=== PATIENT | male | born 1985 | race Caucasian/White ===

== ENCOUNTER 2017-02-16 12:32 | Emergency (ER) | payer OTHER ==
[2017-02-16] MEDS ORDERED: HYDROmorphone 1 MG/ML SYRINGE IM STA (13:49)
[2017-02-16] MEDS ORDERED: DEXAMETHASONE 10 MG/ML VIAL PO STA (13:49)
[2017-02-16] MEDS ORDERED: ONDANSETRON ODT 4 MG TABLET TL STA (13:49)
[2017-02-16] MEDS ORDERED: ONDANSETRON ODT 4 MG TABLET ONE (14:17)
[2017-02-16] MEDS ORDERED: CHERRY SYRUP 10 ML UDC PO ONE (14:17)
[2017-02-16] MEDS ORDERED: HYDROmorphone 1 MG/ML SYRINGE ONE (14:17)
[2017-02-16] MEDS ORDERED: DEXAMETHASONE 10 MG/ML VIAL ONE (14:18)
== END 2017-02-16 15:40 | disposition home or self-care (01) ==
DX: M54.31 Sciatica, right side (principal); M51.37 Other intervertebral disc degeneration, lumbosacral region; W01.0XXA Fall on same level from slipping, tripping and stumbling without subsequent striking against object, initial encounter; Z91.81 History of falling; Y99.0 Civilian activity done for income or pay; Z98.1 Arthrodesis status; F17.200 Nicotine dependence, unspecified, uncomplicated
CPT/HCPCS: 96372; 99283; A9270; J1170; Q0162

== ENCOUNTER 2017-06-02 12:58 | Outpatient (CLI) | payer OTHER | END 2017-06-02 12:59 | disposition home or self-care (01) | LOC: SC 12:58 | PROVIDERS: ATTEND Specialist | DX: G47.30 Sleep apnea, unspecified (principal); R06.83 Snoring; G47.8 Other sleep disorders; G47.10 Hypersomnia, unspecified | CPT/HCPCS: 99205; 99212 ==

== ENCOUNTER 2017-11-11 22:05 | Outpatient (CLI) | payer OTHER | END 2017-11-11 22:06 | disposition home or self-care (01) | LOC: SC 22:05 | PROVIDERS: ATTEND Internal Medicine Pulmonary Disease | DX: G47.30 Sleep apnea, unspecified (principal) | CPT/HCPCS: 95810 ==

== ENCOUNTER 2018-01-12 13:11 | Outpatient (CLI) | payer OTHER | END 2018-01-12 13:12 | disposition home or self-care (01) | LOC: SC 13:11 | PROVIDERS: ATTEND Nurse Practitioner Family | DX: G47.8 Other sleep disorders (principal) | CPT/HCPCS: 99212; 99215 ==

== ENCOUNTER 2023-01-29 15:37 | Outpatient (CLI) | payer OTHER ==
--- NOTE | 2023-01-29 16:46 | XRAY Report ---
PROCEDURE: Elbow 3 View RT INDICATIONS: RIGHT ELBOW PAIN TECHNIQUE: 3 views of the elbow were acquired. COMPARISON: None FINDINGS: Bones: No fractures or dislocations. No suspicious bony lesions. Particular osteophyte formation i s present. Soft tissues: No elbow joint effusion. Small cluster of radiodensities at the anterior aspect of the distal humerus are seen on the lateral view. IMPRESSION: 1. Osteoarthritis. 2. Indeterminate radiodensities at the anterior aspect of the distal humerus. This could be further a ssessed with CT, if clinically indicated. 3. No acute fracture. No osseous lesion. If symptoms and/or clinical suspicion for pathology continue , further assessment with repeat plain films, or advanced imaging (e.g., CT, MRI, or bone scan) is re commended for further assessment. Reviewed by: Jossie Burleson MD on 01/29/2023 4:44 PM PDT Approved by: Jossie Burleson MD on 01/29/2023 4:44 PM PDT Station ID: [id number]
== END 2023-01-29 15:39 | disposition home or self-care (01) ==
LOC: DI.WOS 15:37
PROVIDERS: ATTEND Orthopaedic Surgery
DX: M19.021 Primary osteoarthritis, right elbow (principal)

== ENCOUNTER 2023-11-23 15:44 | Outpatient (CLI) | payer OTHER ==
[~2023-11-23 15:44] MED LIST: GADOTERATE MEGLUMINE 10 MMOL/20 ML VIAL ONE; GADOTERATE MEGLUMINE 5 MMOL/10 ML VIAL ONE
[2023-11-23] MEDS ORDERED: GADOTERATE MEGLUMINE 5 MMOL/10 ML VIAL IVP ONE (17:57)
[2023-11-23] MEDS ORDERED: GADOTERATE MEGLUMINE 10 MMOL/20 ML VIAL IVP ONE (17:57)
--- NOTE | 2023-11-23 18:33 | MRI Report ---
PROCEDURE: LUMBAR SPINE W/WO INDICATIONS: LUMBAR RADICULOPATHY CONTRAST: clariscan 24ml TECHNIQUE: Noncontrast sagittal T1 spin echo and T2 fast spin echo, sagittal STIR, axial T1 and T2 fast spin ech o through the lumbar spine. In cases with scoliosis, additional coronal T2 fast spin echo may be per formed. After the administration of contrast, sagittal and axial T1 spin echo with fat saturation th rough the lumbar spine. COMPARISON: No prior lumbar spine studies are available for review at the time of this dictation. FINDINGS: Image quality: There is artifact associated with the metallic hardware. Motion artifact is noted. Alignment and curvature: Mild retrolisthesis can be seen at the L3-L4 level. Grade 1/2 anterolisthesi s is seen at L5-S1. Marrow: Marrow is of normal overall signal. No acute vertebral body compression fractures. No susp icious marrow enhancement. Spinal cord: Conus medullaris terminates at the L1 level. Visualized spinal cord demonstrates bryanna l signal, without suspicious enhancement. Paraspinous soft tissues: No paravertebral masses or abnormal enhancement. L4-S1 postoperative hardware can be seen, with bilateral pedicle screws and vertical fixation rods. T here has been removal of portions of the posterior elements. T11-T12: Mild to moderate loss of disc height and disc signal can be seen. No significant neural fora migue or central canal narrowing can be seen. T12-L1: Normal in appearance. L1-L2: Normal in appearance. L2-L3: The disc height and disc signal are well preserved. Mild disc bulge is seen. Mild to mode rate facet hypertrophy is seen. Moderate bilateral neural foraminal narrowing is seen. No central ca nal narrowing is seen. L3-L4: The disc height is well-preserved. There is loss of disc signal seen. Moderate disc bulge i s seen at this level. A superimposed central disc protrusion is seen. Moderate facet hypertrophy is seen. Fluid is seen within the facet joints themselves. Moderate to severe bilateral neural foraminal narrowing can be seen, with associated compression upon the exiting nerve roots. At least moderate c entral canal narrowing is seen, as on series 13 image 25. L4-L5: At least moderate loss of disc height and disc signal can be seen. Reactive marrow endplate changes are seen, which are hyperintense on T1-weighted and T2-weighted imaging, without significant increased STIR signal. 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 At least moderate facet hypertrophy is seen. Moderate bilateral neural foraminal narrow ing is seen. No central canal narrowing is seen. L5-S1: Moderate to severe loss of disc height and disc signal can be seen. Moderate disc bulge is se en at this level. Moderate facet hypertrophy is seen. Moderate to severe bilateral neural foramina l narrowing can be seen, with associated compression upon the exiting nerve roots. No central canal n arrowing is seen. IMPRESSION: Lower lumbar spine postoperative and degenerative changes are seen. Reviewed by: Pedrito Hernandez MD on 11/23/2023 5:32 PM [place] Approved by: Pedrito Hernandez MD on 11/23/2023 5:32 PM [facility] Station ID: [id number]
== END 2023-11-23 15:45 | disposition home or self-care (01) ==
LOC: DI 15:44
PROVIDERS: ATTEND Preventive Medicine Aerospace Medicine
DX: M51.16 Intervertebral disc disorders with radiculopathy, lumbar region (principal); M48.061 Spinal stenosis, lumbar region without neurogenic claudication; M47.26 Other spondylosis with radiculopathy, lumbar region; M47.27 Other spondylosis with radiculopathy, lumbosacral region; M48.07 Spinal stenosis, lumbosacral region; M51.17 Intervertebral disc disorders with radiculopathy, lumbosacral region
CPT/HCPCS: 72158; A9575

== ENCOUNTER 2023-12-22 15:03 | Emergency (ER) | payer OTHER ==
[2023-12-22 15:56] LABS: RAPID STREP SCREEN Negative (Negative)
[2023-12-22 16:42] LABS: B. PARAPERTUSSIS- RESP PCR PAN NOT DETECTED; B. PERTUSSIS- RESP PCR PANEL NOT DETECTED; C. PNEUMONIAE- RESP PCR PANEL NOT DETECTED; CORONAVIRUS 229E-RESP PCR NOT DETECTED; CORONAVIRUS HKU1-RESP PCR NOT DETECTED; CORONAVIRUS NL63-RESP PCR NOT DETECTED; CORONAVIRUS OC43-RESP PCR NOT DETECTED; HUMAN METAPNEUMOVIRUS NOT DETECTED; INFLUENZA A- RESP PCR PANEL NOT DETECTED; INFLUENZA B - RESP PCR PANEL NOT DETECTED; M. PNEUMONIAE- RESP PCR PANEL NOT DETECTED; PARAINFLUENZA VIRUS 1 DETECTED; PARAINFLUENZA VIRUS 2 NOT DETECTED; PARAINFLUENZA VIRUS 3 NOT DETECTED; PARAINFLUENZA VIRUS 4 NOT DETECTED; RHINOVIRUS/ENTEROVIRUS NOT DETECTED; RSV- RESP PCR PANEL NOT DETECTED; SARS-CoV-2 -RESP PCR PANEL NOT DETECTED
--- NOTE | 2023-12-22 17:04 | XRAY Report ---
PROCEDURE: Chest 1V INDICATIONS: dyspnea TECHNIQUE: One view of the chest was acquired. COMPARISON: None. FINDINGS: Surgical changes and devices: None. Lungs and pleura: No pleural effusions or pneumothorax. Lungs are clear. Mediastinum: Mediastinal contours appear normal. Heart size is normal. Bones and chest wall: No suspicious bony lesions. Overlying soft tissues appear unremarkable. IMPRESSION: No acute cardiopulmonary process. Reviewed by: Iesha Moore MD on 12/22/2023 5:02 PM [facility] Approved by: Iesha Moore MD on 12/22/2023 5:02 PM [facility] Station ID: [id number]
--- NOTE | 2023-12-22 17:21 | ED Physician Documentation ---
PD HPI URI - Stated complaint Stated Complaint: SOA,SIERRA - Chief complaint Chief Complaint: Resp - History obtained from History obtained from: Patient - History of Present Illness Timing - onset: How many days ago (3) Timing duration: Days (3) Timing details: Abrupt onset, Still present Associated symptoms: Fever, Chills, Sore throat, Dry cough, Dyspnea. No: Hemoptysis Contributing factors: No: Sick contact, COPD / asthma Similar symptoms before: Has not had sx before Review of Systems Constitutional: reports: Fever, Chills, Myalgias Nose: reports: Congestion Throat: reports: Sore throat Cardiac: reports: Chest pain / pressure (with coughing). denies: Palpitations Respiratory: reports: Dyspnea, Cough, Wheezing GI: denies: Vomiting, Diarrhea Skin: denies: Rash Neurologic: reports: Generalized weakness, Headache. denies: Near syncope, Altered mental status PD PAST MEDICAL HISTORY - Past Medical History Cardiovascular: None Respiratory: None Musculoskeletal: Chronic back pain - Past Surgical History Past Surgical History: Yes Ortho: Spine surgery - Present Medications Home Medications: Ambulatory Orders Medication Instructions Recorded Confirmed Cyclobenzaprine [Flexeril] 10 mg PO TID PRN #20 tablet 02/16/17 Gabapentin 300 mg PO TID 02/16/17 02/16/17 Meloxicam 15 mg PO DAILY 02/16/17 02/16/17 Albuterol Sulf [Ventolin Hfa 2 - 3 puffs INH QID #1 each 12/22/23 Inhaler] Benzonatate [Tessalon] 100 mg PO TID PRN #20 cap 12/22/23 DULoxetine [Cymbalta] 60 mg PO DAILY 12/22/23 Pregabalin 75 mg PO BID 12/22/23 dexAMETHasone [Decadron] 4 mg PO DAILY #5 tablet 12/22/23 guaiFENesin [Mucinex] 600 mg PO TID #20 tablet 12/22/23 methocarbamoL [Methocarbamol] 750 mg PO HS 12/22/23 traMADol [Ultram] 50 mg PO DAILY 12/22/23 - Allergies Allergies/Adverse Reactions: Allergies Allergy/AdvReac Type Severity Reaction Status Date / Time codeine AdvReac Unknown Verified 12/22/23 15:34 - Social History Does the pt smoke?: Yes Smoking Status: Light tobacco smoker Does the pt drink ETOH?: No Does the pt have substance abuse?: No - Immunizations Immunizations are current?: Yes PD ED PE NORMAL - Vitals Vital signs reviewed: Yes - General General: Alert and oriented X 3, No acute distress (but does appear weak/ill with frequent coughing and appears uncomfortbale when does cough. ), Well developed/nourished - HEENT HEENT: Ears normal, Pharynx benign - Neck Neck: Supple, no meningeal sign, No adenopathy - Cardiac Cardiac: RRR, No murmur - Respiratory Respiratory: No: Clear bilaterally (no coarse sounds. does have exp wheezing scattered. ) - Derm Derm: Normal color, Warm and dry, No rash Results - Vitals Vitals: Vital Signs - 24 hr 12/22/23 12/22/23 12/22/23 15:23 17:20 18:05 Temperature 37.6 C Heart Rate 96 91 90 Respiratory 18 19 18 Rate Blood Pressure 146/86 H 152/96 H O2 Saturation 98 95 12/22/23 18:24 Temperature Heart Rate 97 Respiratory 18 Rate Blood Pressure 143/93 H O2 Saturation 95 Oxygen O2 Source Room air - Labs Labs: Laboratory Tests 12/22/23 12/22/23 15:30 15:30 Nasal Adenovirus (PCR) NOT DETECTED Nasal B. parapertussis DNA (PCR) NOT DETECTED Nasal Coronavir 229E PCR NOT DETECTED Nasal Coronavir HKU1 PCR NOT DETECTED Nasal Coronavir NL63 PCR NOT DETECTED Nasal Coronavir OC43 PCR NOT DETECTED Nasal Enterovir/Rhinovir PCR NOT DETECTED Nasal Influenza B PCR NOT DETECTED Nasal Influenza A PCR NOT DETECTED Nasal Parainfluen 1 PCR DETECTED A Nasal Parainfluen 2 PCR NOT DETECTED Nasal Parainfluen 3 PCR NOT DETECTED Nasal Parainfluen 4 PCR NOT DETECTED Nasal RSV (PCR) NOT DETECTED Nasal B.pertussis DNA PCR NOT DETECTED Nasal C.pneumoniae (PCR) NOT DETECTED [place] Human Metapneumo PCR NOT DETECTED Nasal M.pneumoniae (PCR) NOT DETECTED Nasal SARS-CoV-2 (PCR) NOT DETECTED Group A Strep Rapid Negative - Rads (name of study) chest xray Relevant Findings:: Prelim report reviewed, EMP independent interpretation of test (no infiltrates) PD Medical Decision Making - ED course Complexity details: reviewed results (chest xray is negative for infiltrates. Viral panel psoitive for parainfluenza. ), considered differential (has positive parainfluenza test. Has been sick for 3 days. No pneumonia. Given the shorter duration of illness, I would presume just viral and not concurrent bacterial. ), d/w patient Departure - Departure Disposition: 01 Home, Self Care Clinical Impression: Parainfluenza infection, Viral URI with cough Condition: Stable Record reviewed to determine appropriate education?: Yes Instructions: ED URI Viral W Wheezing Follow-Up: KASHIF ALLISON DO [Primary Care Provider] - Prescriptions: dexAMETHasone [Decadron] 4 mg PO DAILY #5 tablet guaiFENesin [Mucinex] 600 mg PO TID #20 tablet Benzonatate [Tessalon] 100 mg PO TID PRN #20 cap PRN Reason: Cough Albuterol Sulf [Ventolin Hfa Inhaler] 2 - 3 puffs INH QID #1 each Comments: Your viral panel test was positive for a virus called parainfluenza. This is a flulike illness that will give a lot of general symptoms as well as the coughing and trouble breathing. Your chest x-ray does not show any signs of pneumonia or fluid in the lungs. We can try to help your symptoms with a combination of albuterol inhaler 2 to 3 puffs 4 times daily regularly for the next several days to week and extra times if needed for wheezing and trouble breathing. Additionally anti-inflammatory to help with bronchial inflammation to decrease some of the wheezing and improve breathing as well. Trying to get some of the phlegm up can be useful so I wrote for guaifenesin expectorant. In addition if needed you can use benzonatate to try to help with some of the bronchial irritation and therefore less coughing. I sent these prescriptions to the [facility] pharmacy. We did give you some starter doses here in we showed you how to use the inhaler. Being a viral illness, antibiotics are not helpful and there is no particular antiviral for this particular virus. Commonly the will be symptoms for about a week and then there can be some residual cough and shortness of breath for several weeks after. He can continue with the inhaler use even after feeling improved if it helps your breathing. Forms: PCP List Discharge Date/Time: 12/22/23 18:24
[2023-12-22 17:27] VITALS: O2SAT 95
[2023-12-22] MEDS: ALBUTEROL NEB 2.5 MG/3 ML INH STA (18:02)
[2023-12-22] MEDS: dexAMETHasone 4 MG TABLET PO STA (18:06)
[2023-12-22] MEDS: BENZONATATE 100 MG CAPSULE PO STA (18:06)
[2023-12-22 18:30] VITALS: BP 143/93
[2023-12-23] MEDS ORDERED: guaiFENesin 600 MG TABLET PO SCH (09:00)
== END 2023-12-22 18:24 | disposition home or self-care (01) ==
LOC: ED 15:03
DX: J11.1 Influenza due to unidentified influenza virus with other respiratory manifestations (principal); R05.9 Cough, unspecified; Z11.52 Encounter for screening for COVID-19; Z72.0 Tobacco use
CPT/HCPCS: 71045; 87070; 87430; 87633; 94640; 99284; A9270; J8540

== ENCOUNTER 2024-01-28 15:27 | Outpatient (CLI) | payer OTHER ==
--- NOTE | 2024-01-28 16:58 | MRI Report ---
PROCEDURE: Cervical Spine WO INDICATIONS: CERVICAL RADICULOPATHY TECHNIQUE: Noncontrast sagittal T1 spin echo and T2 fast spin echo, sagittal STIR, foraminal oblique sagittal T2 fast spin echo, and axial gradient echo or T2 fast spin echo through the cervical spine. COMPARISON: None. FINDINGS: Image quality: Excellent. Alignment and Curvature: Straightening of the normal cervical lordosis. Bone Marrow: Modic type II degenerative endplate changes at C5-C6. Marrow demonstrates normal overal l signal. Spinal Cord: Visualized spinal cord has normal size and signal. No cerebellar tonsillar herniation. Paraspinous Soft Tissues: No paravertebral masses. Prevertebral soft tissues are normal in thicknes s. C2-C3: Normal in appearance. C3-C4: Normal in appearance. C4-C5: Normal in appearance. C5-C6: Disc desiccation and posterior disc osteophyte complex abutting the ventral cord. Mild centra l canal stenosis. Facet and uncovertebral arthropathy. Mild bilateral neuroforaminal stenosis. C6-C7: Disc desiccation and height loss with mild posterior disc osteophyte complex. No significant central canal or neuroforaminal stenosis. C7-T1: Normal in appearance. IMPRESSION: Mild degenerative changes of the cervical spine as described above. This is most pronounced at C5-C6. Reviewed by: Robert Loomis MD on 01/28/2024 4:56 PM PDT Approved by: Robert Loomis MD on 01/28/2024 4:56 PM PDT Station ID: [id number]
--- NOTE | 2024-01-28 17:03 | MRI Report ---
PROCEDURE: Thoracic Spine WO INDICATIONS: CERVICAL RADICULOPATHY TECHNIQUE: Noncontrast sagittal T1 spine echo and T2 fast spin echo, sagittal STIR, axial T1 and T2 fast spin ec ho through the thoracic spine. COMPARISON: None. FINDINGS: Image quality: Excellent. Alignment and Curvature: There is normal bony alignment. Bone Marrow: Mild degenerative endplate changes. Marrow is of normal overall signal. No acute verte bral body compression fractures. Spinal Cord: Visualized spinal cord is normal in size and signal. Paraspinous Soft Tissues: No paravertebral masses. Miscellaneous: Mild disc desiccation and mild disc bulge at T11-T12. On axial images, central canal and foramina appear widely patent at all scanned levels. IMPRESSION: Mild degenerative changes without central canal or neuroforaminal stenosis. Reviewed by: Robert Loomis MD on 01/28/2024 5:02 PM PDT Approved by: Robert Loomis MD on 01/28/2024 5:02 PM PDT Station ID: [id number]
== END 2024-01-28 15:28 | disposition home or self-care (01) ==
LOC: DI 15:27
PROVIDERS: ATTEND Preventive Medicine Aerospace Medicine
DX: M47.22 Other spondylosis with radiculopathy, cervical region (principal); M47.814 Spondylosis without myelopathy or radiculopathy, thoracic region

== ENCOUNTER 2024-07-01 16:38 | Outpatient (CLI) | payer OTHER | END 2024-07-01 23:59 | disposition critical access hospital (66) | LOC: EMS 16:38 | DX: R40.20 Unspecified coma (principal); J96.90 Respiratory failure, unspecified, unspecified whether with hypoxia or hypercapnia | CPT/HCPCS: A0425; A0427 ==

== ENCOUNTER 2024-07-01 16:47 | Inpatient (IN) | payer OTHER ==
--- NOTE | 2024-07-01 16:55 | ED Physician Documentation ---
PD HPI ALTERED MENTAL STATUS - Stated complaint Stated Complaint: UNRESPONSIVE - History obtained from History obtained from: EMS - Additional information Additional information: 38-year-old gentleman brought in by ambulance intubated. 's deputy tells me that he sent his a basically a suicide video that she did not get until today. He went out drinking last night and then was alone all night and was found today incontinent of urine in bed with no signs of trauma with empty bottles of Lyrica, methocarbamol, and clonazepam at the bedside. These were all filled within the month. He did receive 20 of etomidate and 100 of rocuronium temitope-intubation. He did receive Narcan prior to intubation which was ineffective. PD PAST MEDICAL HISTORY - Past Medical History Cardiovascular: None Respiratory: None Neuro: None Endocrine/Autoimmune: None GI: None : None HEENT: None Psych: Depression Musculoskeletal: Chronic back pain Derm: None - Past Surgical History Past Surgical History: Yes Ortho: Spine surgery - Present Medications Home Medications: Ambulatory Orders Medication Instructions Recorded Confirmed Cyclobenzaprine [Flexeril] 10 mg PO TID PRN #20 tablet 02/16/17 Gabapentin 300 mg PO TID 02/16/17 02/16/17 Meloxicam 15 mg PO DAILY 02/16/17 02/16/17 Albuterol Sulf [Ventolin Hfa 2 - 3 puffs INH QID #1 each 12/22/23 Inhaler] Benzonatate [Tessalon] 100 mg PO TID PRN #20 cap 12/22/23 DULoxetine [Cymbalta] 60 mg PO DAILY 12/22/23 Pregabalin 75 mg PO BID 12/22/23 dexAMETHasone [Decadron] 4 mg PO DAILY #5 tablet 12/22/23 guaiFENesin [Mucinex] 600 mg PO TID #20 tablet 12/22/23 methocarbamoL [Methocarbamol] 750 mg PO HS 12/22/23 traMADol [Ultram] 50 mg PO DAILY 12/22/23 - Allergies Allergies/Adverse Reactions: Allergies Allergy/AdvReac Type Severity Reaction Status Date / Time codeine AdvReac Unknown Verified 07/01/24 17:25 - Social History Does the pt smoke?: Yes Smoking Status: Light tobacco smoker Does the pt drink ETOH?: No Does the pt have substance abuse?: No - Immunizations Immunizations are current?: Yes - POLST Patient has POLST: No PD ED PE NORMAL - Vitals Vital signs reviewed: Yes - General General: Other (He is intubated with no signs of trauma) - HEENT HEENT: Other (Small but reactive pupils, symmetric) - Cardiac Cardiac: RRR, No murmur, Other (Normal breath sounds with bagging) - Abdomen Abdomen: Normal bowel sounds, Soft, Non tender - Derm Derm: Normal color, Warm and dry - Extremities Extremities: No edema, No calf tenderness / cord - Neuro Eye Opening: None Motor: None Verbal: None GCS Score: 3 Results - Vitals Vitals: Vital Signs - 24 hr 07/01/24 07/01/24 16:47 17:35 Heart Rate 104 H 98 Respiratory 16 Rate Blood Pressure 148/92 H O2 Saturation 99 Oxygen O2 Source Ambu bag - EKG (time done) 1659 EKG releavant findings:: EKG personally interpreted by author of this note. Relevant findings are: Rate: Rate (enter#) (98) Rhythm: NSR Beatty: Normal Intervals: Normal CT. No: Prolonged QT, Wide QRS QRS: Normal Ischemia: Normal ST segments - Labs Labs: Laboratory Tests 07/01/24 07/01/24 07/01/24 17:00 17:00 17:00 WBC 9.7 RBC 4.72 Hgb 14.5 Hct 43.5 MCV 92.2 MCH 30.7 MCHC 33.3 RDW 14.1 Plt Count 120 L MPV 8.8 Neut # (Auto) 7.6 H Lymph # (Auto) 1.3 L [place] # (Auto) 0.6 Eos # (Auto) 0.1 Baso # (Auto) 0.0 Absolute Nucleated RBC 0.00 Nucleated RBC % 0.0 PT 13.9 H INR 1.3 H Bld Gas Analysis Time Sample Site ABG pH ABG pCO2 ABG pO2 ABG HCO3 ABG Total CO2 ABG O2 Saturation ABG Base Excess Mariano Test Respiration Rate O2 Delivery Device Vent Mode FiO2 Tidal Volume PEEP Sodium 140 Potassium 4.0 Chloride 104 Carbon Dioxide 27 Anion Gap 9.0 BUN 17 Creatinine 0.9 Estimated GFR (MDRD) 94 Glucose 98 Calcium 9.6 Magnesium 1.9 Total Bilirubin 0.5 AST 51 H ALT 43 Alkaline Phosphatase 98 Total Creatine Kinase 2869 H* Total Protein 7.2 Albumin 4.3 Globulin 2.9 Albumin/Globulin Ratio 1.5 Lipase 29 TSH 0.48 Urine Color Urine Clarity Urine pH Ur Specific [place] Urine Protein Urine Glucose (UA) Urine Ketones Urine Occult Blood Urine Nitrite Urine Bilirubin Urine Urobilinogen Ur Leukocyte Esterase Ur Microscopic Review Urine Culture Comments Nasal Adenovirus (PCR) Nasal B. parapertussis DNA (PCR) Nasal Coronavir 229E PCR Nasal Coronavir HKU1 PCR Nasal Coronavir NL63 PCR Nasal Coronavir OC43 PCR Nasal Enterovir/Rhinovir PCR Nasal Influenza B PCR Nasal Influenza A PCR Nasal Parainfluen 1 PCR Nasal Parainfluen 2 PCR Nasal Parainfluen 3 PCR Nasal Parainfluen 4 PCR Nasal RSV (PCR) Nasal B.pertussis DNA PCR Nasal C.pneumoniae (PCR) [place] Human Metapneumo PCR Nasal M.pneumoniae (PCR) Nasal SARS-CoV-2 (PCR) Salicylates < 1.5 Urine Opiates Screen Ur Buprenorphine Scrn Ur Oxycodone Screen Urine Methadone Screen Acetaminophen < 0.1 Ur Barbiturates Screen Ur Tricyclics Screen Ur Phencyclidine Scrn Ur Amphetamine Screen U Methamphetamines Scrn U Benzodiazepines Scrn Urine Cocaine Screen U Cannabinoids Screen Ur Drug Screen Comment Ethyl Alcohol < 10.0 07/01/24 07/01/24 07/01/24 17:06 17:11 17:25 WBC RBC Hgb Hct MCV MCH MCHC RDW Plt Count MPV Neut # (Auto) Lymph # (Auto) [place] # (Auto) Eos # (Auto) Baso # (Auto) Absolute Nucleated RBC Nucleated RBC % PT INR Bld Gas Analysis Time 1731 Sample Site RIGHT RADIAL ABG pH 7.34 L ABG pCO2 51 H ABG pO2 299 H* ABG HCO3 26.5 H ABG Total CO2 28.1 ABG O2 Saturation 99 H ABG Base Excess -0.1 Mariano Test POSITIVE Respiration Rate 12 O2 Delivery Device VENTILATOR Vent Mode ASSIST/CONTROL FiO2 80.00 Tidal Volume 600 PEEP 5 Sodium Potassium Chloride Carbon Dioxide Anion Gap BUN Creatinine Estimated GFR (MDRD) Glucose Calcium Magnesium Total Bilirubin AST ALT Alkaline Phosphatase Total Creatine Kinase Total Protein Albumin Globulin Albumin/Globulin Ratio Lipase TSH Urine Color YELLOW Urine Clarity CLEAR Urine pH 6.0 Ur Specific [place] 1.020 Urine Protein NEGATIVE Urine Glucose (UA) NEGATIVE Urine Ketones NEGATIVE Urine Occult Blood NEGATIVE Urine Nitrite NEGATIVE Urine Bilirubin NEGATIVE Urine Urobilinogen 0.2 (NORMAL) Ur Leukocyte Esterase NEGATIVE Ur Microscopic Review NOT INDICATED Urine Culture Comments NOT INDICATED Nasal Adenovirus (PCR) NOT DETECTED Nasal B. parapertussis DNA (PCR) NOT DETECTED Nasal Coronavir 229E PCR NOT DETECTED Nasal Coronavir HKU1 PCR NOT DETECTED Nasal Coronavir NL63 PCR NOT DETECTED Nasal Coronavir OC43 PCR NOT DETECTED Nasal Enterovir/Rhinovir PCR NOT DETECTED Nasal Influenza B PCR NOT DETECTED Nasal Influenza A PCR NOT DETECTED Nasal Parainfluen 1 PCR NOT DETECTED Nasal Parainfluen 2 PCR NOT DETECTED Nasal Parainfluen 3 PCR NOT DETECTED Nasal Parainfluen 4 PCR NOT DETECTED Nasal RSV (PCR) NOT DETECTED Nasal B.pertussis DNA PCR NOT DETECTED Nasal C.pneumoniae (PCR) NOT DETECTED [place] Human Metapneumo PCR NOT DETECTED Nasal M.pneumoniae (PCR) NOT DETECTED Nasal SARS-CoV-2 (PCR) NOT DETECTED Salicylates Urine Opiates Screen NEGATIVE Ur Buprenorphine Scrn NEGATIVE Ur Oxycodone Screen NEGATIVE Urine Methadone Screen NEGATIVE Acetaminophen Ur Barbiturates Screen NEGATIVE Ur Tricyclics Screen POSITIVE H Ur Phencyclidine Scrn NEGATIVE Ur Amphetamine Screen NEGATIVE U Methamphetamines Scrn NEGATIVE U Benzodiazepines Scrn NEGATIVE Urine Cocaine Screen NEGATIVE U Cannabinoids Screen NEGATIVE Ur Drug Screen Comment CUTOFF CONC BELOW: Ethyl Alcohol PD Medical Decision Making - ED course ED course: 38-year-old gentleman presents after an apparent suicide attempt with a polydrug overdose on multiple sedatives. He is intubated on arrival. EKG is without signs of long QT or QRS widening. His hemodynamics are normal. He did start to wake up after time and was started on a propofol drip and did need upper extremity restraints to protect the endotracheal tube. Otherwise workup demonstrates a unremarkable head CT, normal CBC, INR slightly elevated at 1.3. Initial blood gas showing hypoxemia and the vent was adjusted down. CMP unremarkable save a CK of 2869 for which he is given IV fluids. And toxicology testing only positive for tricyclic's. Decision to admit at 6:28 PM, pending telehealth arrival at 7 PM. - Critical Care Time(min): 45 Time Includes: Direct patient care, Review records, Reassess patient, Document care, Coordinate care, Medical consult, Family consult for tx dec Data interpretation: Labs, Pulse ox, ABG, CXR Procedures included in critical care time: Peripheral IV Procedures excluded from critical care time: EKG Departure - Departure Disposition: 66 [facility] DC/Xfer Clinical Impression: Suicide attempt Respiratory failure Qualifiers: Chronicity: acute Respiratory failure complication: unspecified whether with hypoxia or hypercapnia Qualified Code(s): J96.00 - Acute respiratory failure, unspecified whether with hypoxia or hypercapnia Drug overdose Qualifiers: Encounter type: initial encounter Injury intent: intentional self-harm Qualified Code(s): T50.902A - Poisoning by unspecified drugs, medicaments and biological substances, intentional self-harm, initial encounter Condition: Critical
[2024-07-01 17:07] LABS: BASOPHILS % (AUTO) 0.2 %; EOSINOPHILS # (AUTO) 0.1 10^3/uL (0.0-0.7); EOSINOPHILS % (AUTO) 0.8 %; HCT - HEMATOCRIT 43.5 % (42.0-52.0); HGB - HEMOGLOBIN 14.5 g/dL (14.0-18.0); LYMPHOCYTES # (AUTO) 1.3 10^3/uL (1.5-3.5); LYMPHOCYTES % (AUTO) 13.4 %; MEAN CORPUSCULAR HEMOGLOBIN 30.7 pg (27.0-31.0); MEAN CORPUSCULAR HGB CONC 33.3 g/dL (32.0-36.0); MEAN CORPUSCULAR VOLUME 92.2 fL (80.0-94.0); MEAN PLATELET VOLUME 8.8 fL (7.4-11.4); MONOCYTES # (AUTO) 0.6 10^3/uL (0.0-1.0); MONOCYTES % (AUTO) 6.1 %; NEUTROPHILS # (AUTO) 7.6 10^3/uL (1.5-6.6); NEUTROPHILS % (AUTO) 78.8 %; PLT - PLATELET COUNT 120 10^3/uL (130-450); RED BLOOD COUNT 4.72 10^6/uL (4.70-6.10); RED CELL DISTRIBUTION WIDTH 14.1 % (12.0-15.0); WHITE BLOOD COUNT 9.7 x10^3/uL (4.8-10.8)
[2024-07-01 17:12] LABS: INR 1.3 (0.8-1.2); PT - PROTHROMBIN TIME 13.9 secs (9.9-12.6)
[2024-07-01 17:28] LABS: ALBUMIN 4.3 g/dL (3.2-5.5); ALBUMIN/GLOBULIN RATIO 1.5 (1.0-2.2); ALKALINE PHOSPHATASE 98 IU/L (42-121); ALT ALANINE AMINOTRANSFERASE 43 IU/L (10-60); AST ASPARTATE AMINOTRANSFERASE 51 IU/L (10-42); BILIRUBIN,TOTAL 0.5 mg/dL (0.2-1.0); BUN - BLOOD UREA NITROGEN 17 mg/dL (6-20); CALCIUM 9.6 mg/dL (8.5-10.3); CARBON DIOXIDE - CO2 27 mmol/L (21-32); CHLORIDE 104 mmol/L (101-111); CREATININE 0.9 mg/dL (0.6-1.3); ETOH - ETHANOL < 10.0 mg/dL; GFR - MDRD 94 (>89); GLUCOSE 98 mg/dL (74-104); LIPASE 29 U/L (11-82); MAGNESIUM 1.9 mg/dL (1.7-2.3); SODIUM 140 mmol/L (135-145); TOTAL PROTEIN 7.2 g/dL (6.4-8.9)
[2024-07-01 17:30] LABS: ABG PCO2 51 mmHg (34-45); ABG PH 7.34 (7.35-7.45)
[2024-07-01 17:31] LABS: ABG BASE EXCESS -0.1 mmol/L (-2.0-3.0); ABG HCO3 26.5 mmol/L (22.0-26.0); ABG MODE OF VENTILATION ASSIST/CONTROL; ABG OXYGEN SATURATION 99 % (94-98); ABG TCO2 28.1 MMOL/L (21.0-29.0); ALLEN TEST POSITIVE
[2024-07-01 17:32] LABS: ABG RESPIRATORY RATE 12 b/min
[2024-07-01 17:33] LABS: ABG PO2 299 mmHg (80-100)
[2024-07-01 17:35] LABS: THYROID STIMULATING HORMONE 0.48 uIU/mL (0.34-5.60)
[2024-07-01 17:36] LABS: BILIRUBIN,URINE NEGATIVE (NEGATIVE); GLUCOSE, URINE (UA) NEGATIVE (NEGATIVE); KETONES,URINE (UA) NEGATIVE (NEGATIVE); LEUKOCYTE ESTERASE, URINE NEGATIVE (NEGATIVE); NITRITE,URINE NEGATIVE (NEGATIVE); OCCULT BLOOD,URINE NEGATIVE (NEGATIVE); PROTEIN,URINE NEGATIVE (NEGATIVE); UROBILINOGEN,URINE 0.2 (NORMAL) E.U./dL (NORMAL)
[2024-07-01 17:38] LABS: CLARITY,URINE CLEAR (CLEAR)
[2024-07-01] MEDS: KETAMINE 500 MG/10 ML VIAL IVP STA (17:46)
[2024-07-01 17:47] LABS: AMPHETAMINE SCREEN,URINE NEGATIVE (NEGATIVE); BENZODIAZEPINES SCREEN, URINE NEGATIVE (NEGATIVE); COCAINE SCREEN URINE NEGATIVE (NEGATIVE); METHAMPHETAMINES SCREEN, URINE NEGATIVE (NEGATIVE); OPIATE SCREEN, URINE NEGATIVE (NEGATIVE); THC CANNABINOID SCREEN, URINE NEGATIVE (NEGATIVE)
[2024-07-01 17:48] LABS: BARBITURATE SCREEN,UR NEGATIVE (NEGATIVE); BUPRENORPHINE SCREEN, URINE NEGATIVE (NEGATIVE); METHADONE SCREEN, URINE NEGATIVE (NEGATIVE); OXYCODONE SCREEN, URINE NEGATIVE (NEGATIVE); TRICYCLIC ANTIDEPRESSANT,URINE POSITIVE (NEGATIVE)
[2024-07-01 17:57] LABS: ACETAMINOPHEN < 0.1 ug/mL; CK- CREATINE KINASE 2869 IU/L (30-223); SALICYLATE < 1.5 mg/dL
[2024-07-01] MEDS: PROPOFOL 1000 MG/100 ML 1,000 MG/100 ML BOTTLE IV STA (18:07)
[2024-07-01] MEDS: SODIUM CHLORIDE 0.9% 1,000 ML IV STA ×2 (18:11→18:13)
--- NOTE | 2024-07-01 18:13 | XRAY Report ---
PROCEDURE: Chest for Line Placement INDICATIONS: ETT TECHNIQUE: One view of the chest was acquired. COMPARISON: None. FINDINGS: Surgical changes and devices: Endotracheal tube tip projects over the mid thoracic trachea. Feeding tube passes below the diaphragm. Lungs and pleura: Patchy left basilar opacity. Mediastinum: Mediastinal contours appear normal. Heart size is normal. Bones and chest wall: No suspicious bony lesions. Overlying soft tissues appear unremarkable. IMPRESSION: Support devices project over the appropriate positions. Patchy left basilar opacity, could represent atelectasis or infection. Reviewed by: Rg Steven MD on 07/01/2024 6:12 PM PDT Approved by: Rg Steven MD on 07/01/2024 6:12 PM PDT Station ID: [id number]
[2024-07-01 18:14] LABS: B. PARAPERTUSSIS- RESP PCR PAN NOT DETECTED; B. PERTUSSIS- RESP PCR PANEL NOT DETECTED; C. PNEUMONIAE- RESP PCR PANEL NOT DETECTED; CORONAVIRUS 229E-RESP PCR NOT DETECTED; CORONAVIRUS HKU1-RESP PCR NOT DETECTED; CORONAVIRUS NL63-RESP PCR NOT DETECTED; CORONAVIRUS OC43-RESP PCR NOT DETECTED; HUMAN METAPNEUMOVIRUS NOT DETECTED; INFLUENZA A- RESP PCR PANEL NOT DETECTED; INFLUENZA B - RESP PCR PANEL NOT DETECTED; M. PNEUMONIAE- RESP PCR PANEL NOT DETECTED; PARAINFLUENZA VIRUS 1 NOT DETECTED; PARAINFLUENZA VIRUS 2 NOT DETECTED; PARAINFLUENZA VIRUS 3 NOT DETECTED; PARAINFLUENZA VIRUS 4 NOT DETECTED; RHINOVIRUS/ENTEROVIRUS NOT DETECTED; RSV- RESP PCR PANEL NOT DETECTED; SARS-CoV-2 -RESP PCR PANEL NOT DETECTED
--- NOTE | 2024-07-01 18:14 | CT Report ---
PROCEDURE: Head WO INDICATIONS: AMS TECHNIQUE: Noncontrast 4.5 mm thick angled axial sections acquired from the foramen magnum to the vertex. For r adiation dose reduction, the following was used: automated exposure control, adjustment of mA and/or kV according to patient size. COMPARISON: None. FINDINGS: Image quality: There is streak artifact seen through the skull base. CSF spaces: Basal cisterns are patent. No extra-axial fluid collections. Ventricles are normal in size and shape. Brain: No midline shift. No intracranial masses or hemorrhage. Mclean-white matter interface is norm al. Skull and face: Calvarium and visualized facial bones are intact, without suspicious lesions. Sinuses: Visualized sinuses and mastoids are clear. A nasogastric tube is partially seen. IMPRESSION: No acute intracranial pathology. Reviewed by: Pedrito Hernandez MD on 07/01/2024 5:12 PM AKKANE Approved by: Pedrito Hernandez MD on 07/01/2024 5:12 PM AKDT Station ID: [id number]
[2024-07-01] MEDS ORDERED: ONDANSETRON 4 MG/2 ML VIAL IVP PRN (19:28)
--- NOTE | 2024-07-01 19:43 | HISTORY & PHYSICAL EXAMINATION ---
Chief Complaint - Chief Complaint Chief Complaint: AMS History of Present Illness - History of Present Illness HPI Comment/Other: 38 y old male with PMH back pain BIBA due to AMS and drug overdose. Pt is currently intubated and on ventilator so most of history is by ER physician and ER record Apparently pt was found unconsious in his bed with empty bottles of methocarbamol, clonazepam and lyrica. Pt was intubated by EMS at the scene and brought to the ER Labs showed thromrombocytopenia and CPK > 2800 CT head showed no acute intracranial abnormalities CXR showed no acute infiltrate In ER pt was given NS 1L IV bolus Pt is admitted due to acute respiratory failure, Drug overdose, acute rhabdomyolysis History - Past Medical History Cardiovascular: reports: None Respiratory: reports: None Neuro: reports: None Endocrine/Autoimmune: reports: None GI: reports: None : reports: None HEENT: reports: None Psych: reports: Depression Musculoskeletal: reports: Chronic back pain Derm: reports: None MRSA Hx?: No - Past Surgical History Ortho: reports: Spine surgery - POLST Patient has POLST: No Meds/Allgy - Home Medications Home Medications: Ambulatory Orders Medication Instructions Recorded Confirmed Cyclobenzaprine [Flexeril] 10 mg PO TID PRN #20 tablet 02/16/17 Gabapentin 300 mg PO TID 02/16/17 02/16/17 Meloxicam 15 mg PO DAILY 02/16/17 02/16/17 Albuterol Sulf [Ventolin Hfa 2 - 3 puffs INH QID #1 each 12/22/23 Inhaler] Benzonatate [Tessalon] 100 mg PO TID PRN #20 cap 12/22/23 DULoxetine [Cymbalta] 60 mg PO DAILY 12/22/23 Pregabalin 75 mg PO BID 12/22/23 dexAMETHasone [Decadron] 4 mg PO DAILY #5 tablet 12/22/23 guaiFENesin [Mucinex] 600 mg PO TID #20 tablet 12/22/23 methocarbamoL [Methocarbamol] 750 mg PO HS 12/22/23 traMADol [Ultram] 50 mg PO DAILY 12/22/23 - Allergies Allergies/Adverse Reactions: Allergies Allergy/AdvReac Type Severity Reaction Status Date / Time codeine AdvReac Unknown Verified 07/01/24 17:25 Review of Systems - Other Findings Other Findings: Unable to obtain as pt is sedated and on ventilator Exam - Vital Signs Vital Signs: Vital Signs x48h Pulse Resp BP Pulse Ox 07/01/24 18:56 82 14 119/78 99 07/01/24 18:40 85 14 118/78 98 07/01/24 18:20 91 15 120/79 98 07/01/24 17:40 95 17 150/87 H 100 07/01/24 17:35 98 07/01/24 17:34 97 17 148/90 H 100 07/01/24 17:10 97 19 147/95 H 100 07/01/24 16:50 99 16 148/92 H 100 07/01/24 16:47 104 H 16 148/92 H 99 - Physical Exam General Appearance: positive: Other (on vent) ENT: positive: Other (ET Tube) Neck: positive: Nml inspection Respiratory: positive: Other (B/L air entry) Cardiovascular: positive: Regular rate & rhythm Abdomen: positive: No distention Skin: positive: No rash Extremities: positive: No pedal edema Neurologic/Psychiatric: positive: Other (Pt is sedated) Conclusion/Plan - Lab Results Fish Bones: 07/01/24 17:00 07/01/24 17:00 - Other Other Results/Comments: A: Acute hypoxic respiratory failure Drug overdose AMS Acute encephalopathy Acute rhabdomyolsis Thrombocytopenia Chronic back pain Plan: Admit in ICU Pt is on vent Vent management Cont cardiac monitoring monitor electrolytes Start NS @ 150 cc/h Monitor I/O Repeat CBC, CMP, CPK in am supportive care DVT prophylaxic: SCD Avoid anticoagulation due to thrombocytopenia Full code Pt is admitted as inpatient as more than 2 midnight stay is expected
[2024-07-01] MEDS ORDERED: PROPOFOL 1000 MG/100 ML 1,000 MG/100 ML BOTTLE IV ONE (21:05)
[2024-07-01] MEDS: FAMOTIDINE 20 MG/2 ML VIAL IVP SCH (22:16)
[2024-07-01] MEDS: SODIUM CHLORIDE FLUSH 0.9% 10 ML SYRINGE IVP SCH (22:17)
[2024-07-01] MEDS: SODIUM CHLORIDE 0.9% 1,000 ML IV SCH (22:30)
[2024-07-02] MEDS: LORazepam 2 MG/ML VIAL IVP ONE ×2 (02:51→06:29)
[2024-07-02] MEDS: SODIUM CHLORIDE FLUSH 0.9% 10 ML SYRINGE IVP PRN (02:52)
[2024-07-02] MEDS: PROPOFOL 1000 MG/100 ML 1,000 MG/100 ML BOTTLE IV SCH (03:28)
[2024-07-02 04:43] LABS: CALCIUM, IONIZED 1.1 mmol/L (1.15-1.33); VBG PH 7.437 (7.31-7.41)
[2024-07-02 04:44] LABS: BASOPHILS % (AUTO) 0.3 %; EOSINOPHILS # (AUTO) 0.1 10^3/uL (0.0-0.7); EOSINOPHILS % (AUTO) 0.9 %; HCT - HEMATOCRIT 40.8 % (42.0-52.0); HGB - HEMOGLOBIN 13.6 g/dL (14.0-18.0); LYMPHOCYTES # (AUTO) 1.1 10^3/uL (1.5-3.5); MEAN CORPUSCULAR HEMOGLOBIN 30.6 pg (27.0-31.0); MEAN CORPUSCULAR HGB CONC 33.3 g/dL (32.0-36.0); MEAN CORPUSCULAR VOLUME 91.9 fL (80.0-94.0); MEAN PLATELET VOLUME 8.9 fL (7.4-11.4); MONOCYTES # (AUTO) 0.4 10^3/uL (0.0-1.0); MONOCYTES % (AUTO) 4.8 %; NEUTROPHILS # (AUTO) 5.9 10^3/uL (1.5-6.6); NEUTROPHILS % (AUTO) 78.7 %; PLT - PLATELET COUNT 121 10^3/uL (130-450); RED BLOOD COUNT 4.44 10^6/uL (4.70-6.10); RED CELL DISTRIBUTION WIDTH 14.1 % (12.0-15.0); WHITE BLOOD COUNT 7.5 x10^3/uL (4.8-10.8)
[2024-07-02 04:50] LABS: MAGNESIUM 1.7 mg/dL (1.7-2.3)
[2024-07-02 04:56] LABS: ALBUMIN 3.8 g/dL (3.2-5.5); ALBUMIN/GLOBULIN RATIO 1.6 (1.0-2.2); BILIRUBIN,TOTAL 0.4 mg/dL (0.2-1.0); CALCIUM 8.8 mg/dL (8.5-10.3); PHOSPHORUS 3.4 mg/dL (2.5-5.0); POTASSIUM 3.9 mmol/L (3.5-4.5); TOTAL PROTEIN 6.2 g/dL (6.4-8.9)
[2024-07-02] MEDS: ACETAMINOPHEN 1,000 MG/100 ML 1,000 MG/100 ML BAG IV ONE (06:32)
[2024-07-02] MEDS: MAGNESIUM SULFATE 2 GRAM 2 GM/50 ML BAG IV ONE (06:39)
[2024-07-02] MEDS: POTASSIUM CHLOR 10 MEQ/100 ML 10 MEQ/100 ML BAG IV SCH (06:53)
[2024-07-02] MEDS ORDERED: LORazepam 2 MG/ML VIAL IVP PRN (07:40)
[2024-07-02 07:49] LABS: ABG PCO2 37 mmHg (34-45); ABG PH 7.45 (7.35-7.45)
[2024-07-02 07:50] LABS: ABG BASE EXCESS 1.8 mmol/L (-2.0-3.0); ABG HCO3 25.5 mmol/L (22.0-26.0); ABG MODE OF VENTILATION ASSIST/CONTROL; ABG OXYGEN SATURATION 95 % (94-98); ABG PO2 73 mmHg (80-100); ABG RESPIRATORY RATE 12 b/min; ABG TCO2 26.7 MMOL/L (21.0-29.0); ALLEN TEST POSITIVE
[2024-07-02] MEDS ORDERED: PIPERACILLIN/TAZOBACTAM 3.375 GM in SODIUM CHLORIDE 0.9% MINIBAG 100 ML IV SCH (08:00)
[2024-07-02] MEDS: CALCIUM GLUC 1,000MG/50ML-NACL 1,000 MG/50 ML BAG IV ONE (08:32)
[2024-07-02] MEDS: CHLORHEXIDINE GLUCONATE 15 ML UDC PO SCH (08:40)
[2024-07-02] MEDS: PIPERACILLIN/TAZOBACTAM 3.375 GM in SODIUM CHLORIDE 0.9% MINIBAG 100 ML IV ONE (08:40)
--- NOTE | 2024-07-02 09:04 | XRAY Report ---
PROCEDURE: Chest 1V INDICATIONS: Intubated, possible aspiration PNA TECHNIQUE: One view of the chest was acquired. COMPARISON: 07/01/2024, 12/22/2023 FINDINGS: Surgical changes and devices: An endotracheal tube is seen, with the tip 3 cm above the sabine. A ga stric tube is seen, with the tip overlying the fundus of the stomach. Lungs and pleura: On the semiupright images, no large pneumothorax or large pleural effusions can be seen. Patchy, poorly defined opacities can be seen. Streaky opacities are seen at the left lung base , likely representing atelectasis. Low lung volumes can be seen, causing a crowded appearance to the lung markings. Mediastinum: Mediastinal contours appear normal. Heart size is normal. Bones and chest wall: No suspicious bony lesions. Overlying soft tissues appear unremarkable. IMPRESSION: The tip of the endotracheal tube is seen 3 cm above the sabine. Patchy, poorly defined opacities can be seen within the lungs, which are mildly more prominent than o n 07/01/2024 and most likely represent pulmonary edema or atypical infiltrate. No focal consolidation can be seen. Reviewed by: Pedrito Hernandez MD on 07/02/2024 8:02 AM CIARRA Approved by: Pedrito Hernandez MD on 07/02/2024 8:02 AM CIARRA Station ID: [id number]
--- NOTE | 2024-07-02 09:14 | PHARMACY PROGRESS NOTE ---
- Best Possible Medication History Admit Date and Time: 07/01/241927 Processed by: Pharmacy Medications reviewed in ED?: No Medication History completed: Yes Patient Interview: Pt unable to participate Secondary Source(s): Other family member (PER [employer] RECORDS AND CALL TO [facility] [place], [place], PRESENT AND NO PT MED LIST AVAILABLE), Pharmacy records, Insurance records As the person ultimately responsible for medication therapy, providers are able to order a medication from an existing home medication list in [facility] via the "Reconcile Routine" prior to Confirmation of that medication by network support analyst. Such practice is discouraged except when the physician, in their clinical judgment, deems that a medical need exists for a medication without regard to previous use.
--- NOTE | 2024-07-02 11:19 | PROVIDER PROGRESS NOTE ---
Assessment/Plan - Problem List (1) Respiratory failure Qualifiers: Chronicity: acute Respiratory failure complication: hypoxia Qualified Code(s): J96.01 - Acute respiratory failure with hypoxia Assessment/Plan: Patient is a 38-year-old man with a history of depression and chronic pain intubated in the field after an intentional drug overdose with intent to end his own life. Drugs used include methocarbamol, clonazepam, and Lyrica. * Currently, patient remains intubated with a developing concern for possible aspiration pneumonia based on orogastric tube contents produced on suction. * Patient is also been intermittently febrile though there is no WBC elevation * Preliminary report on sputum culture demonstrates multiple gram-positive cocci, few gram-negative rods * Zosyn was started this morning, will continue pending clinical course and culture results * ABG from this a.m. is reassuring * Chest x-ray from this a.m. shows possible worsening of edema versus consolidation * Continue ventilator support with anticipation for possible breathing trial later this afternoon versus tomorrow morning pending clinical course * Most likely, patient will remain intubated overnight (2) Drug overdose Qualifiers: Encounter type: initial encounter Injury intent: intentional self-harm Qualified Code(s): T50.902A - Poisoning by unspecified drugs, medicaments and biological substances, intentional self-harm, initial encounter Assessment/Plan: As above, drug overdose with Lyrica, clonazepam,And methocarbamol Drug overdose is confirmed a suicide attempt given patient has recorded a video to his to say his goodbyes Continue supportive care and problem focused care as above (3) Chronic pain Assessment/Plan: Patient known to have chronic pain secondary to complications from remote lumbar fusion, currently under the management of spine surgery with plans for return to the OR later this month Patient is not on opiates at baseline Once extubated, anticipate pain control will be a concern and will initiate pain medications For the time being, continue sedation as necessary for respiratory support (4) Depression Qualifiers: Depression Type: major depressive disorder Major depression recurrence: unspecified whether recurrent Active/Remission status: currently active Major depression episode severity: severe Psychotic features: without psychotic features Qualified Code(s): F32.2 - Major depressive disorder, single episode, severe without psychotic features Assessment/Plan: Patient with known history of depression followed by outpatient psychiatry * Per patient's at the bedside, he had recently been switched to new medications and psychiatry warned them to anticipate possible worsening of depression and even increased suicidality as a possible side effect * Current outpatient medications include Pristiq, Klonopin, and Seroquel * If patient remains intubated tomorrow, will consider resuming medications via OG tube (5) Suicide attempt Assessment/Plan: As above, suicide attempt with drug overdose Due to suicide attempt, once patient is medically stable, anticipate he will require inpatient psychiatric admission - Current Meds Current Meds: Current Medications Generic Name Dose Route Start Last Admin Trade Name Freq PRN Reason Stop Dose Admin Chlorhexidine Gluconate 15 ml 07/02/24 09:00 07/02/24 08:40 Chlorhexidine Gluconate 15 Ml Udc PO 15 ml BID CIRILO Administration Famotidine 20 mg 07/01/24 21:00 07/02/24 08:40 Famotidine 20 Mg/2 Ml Vial IVP 20 mg BID CIRILO Administration Sodium Chloride 1,000 mls @ 150 mls/hr 07/01/24 20:00 07/02/24 06:01 Normal Saline 0.9% IV 150 mls/hr .Q6H40M CIRILO Administration Propofol 1,000 mg in 100 mls @ 7.71 mls/hr 07/01/24 22:30 07/02/24 10:12 Diprivan IV 40 mcg/kg/min .[id number] CIRILO 30.84 mls/hr Administration Protocol 10 MCG/KG/MIN Sodium Chloride 10 ml 07/02/24 01:00 07/02/24 08:41 Sodium Chloride Flush 0.9% 10 Ml Syringe IVP 10 ml 0100,0900,1700 CIRILO Administration Sodium Chloride 10 ml 07/01/24 19:28 07/02/24 06:29 Sodium Chloride Flush 0.9% 10 Ml Syringe IVP 10 ml PRN PRN Administration NEEDED PER PROVIDER ORDERS - Lab Result Lab results reviewed: Yes Fish Bone Diagrams: 07/02/24 04:32 07/02/24 04:32 - EKG Results EKG Interpreted Independently: Yes - Diagnostic Imaging Results Diagnostic Imaging Results: Final report reviewed - Additional Planning Condition/Complexity: Critical My Orders: My Active Orders 07/02/24 07:24 RT - Obtain Arterial Specimen [RC] .ONCE 07/02/24 07:40 LORazepam INJ [Ativan Inj (Vial)] 0.5 mg IVP Q1H PRN 07/02/24 07:45 CUL, RESPIRATORY [RM] Routine 07/02/24 07:47 RT - Obtain Arterial Specimen [RC] .ONCE 07/02/24 09:00 Chlorhexidine [Peridex] 15 ml PO BID 07/02/24 10:27 Acetaminophen [Tylenol] 160 mg PO Q6HR PRN 07/02/24 12:00 Piperacillin/Tazobactam [Zosyn] 3.375 gm Sodium Chloride 0.9% Minibag [Normal Saline 0.9% Minibag] 100 ml IV Q8H Subjective - Subjective Patient Reports: Other (Unable to assess as patient is sedated) Objective Vital Signs: Vital Signs - 24 hr 07/01/24 07/01/24 07/01/24 16:47 16:50 17:10 Temperature Heart Rate 104 H 99 97 Heart Rate [ Monitoring electrodes] Respiratory 16 16 19 Rate Blood Pressure 148/92 H 148/92 H 147/95 H Blood Pressure [Right Brachial artery] O2 Saturation 99 100 100 07/01/24 07/01/24 07/01/24 17:34 17:35 17:40 Temperature Heart Rate 97 98 95 Heart Rate [ Monitoring electrodes] Respiratory 17 17 Rate Blood Pressure 148/90 H 150/87 H Blood Pressure [Right Brachial artery] O2 Saturation 100 100 07/01/24 07/01/24 07/01/24 18:20 18:40 18:56 Temperature Heart Rate 91 85 82 Heart Rate [ Monitoring electrodes] Respiratory 15 14 14 Rate Blood Pressure 120/79 118/78 119/78 Blood Pressure [Right Brachial artery] O2 Saturation 98 98 99 07/01/24 07/01/24 07/01/24 19:20 19:26 20:24 Temperature Heart Rate 78 81 Heart Rate [ 78 Monitoring electrodes] Respiratory 15 13 Rate Blood Pressure 116/79 Blood Pressure 124/80 [Right Brachial artery] O2 Saturation 98 97 07/01/24 07/01/24 07/01/24 20:45 21:00 22:00 Temperature 35.4 C L 35.5 C L 35.8 C L Heart Rate Heart Rate [ 83 78 80 Monitoring electrodes] Respiratory 17 17 16 Rate Blood Pressure Blood Pressure 130/103 H 134/91 H 117/79 [Right Brachial artery] O2 Saturation 98 99 96 07/01/24 07/01/24 07/02/24 22:40 23:00 00:00 Temperature 36.3 C L 36.9 C Heart Rate 81 Heart Rate [ 88 93 Monitoring electrodes] Respiratory 16 15 Rate Blood Pressure Blood Pressure 123/81 H 124/80 [Right Brachial artery] O2 Saturation 99 98 07/02/24 07/02/24 07/02/24 01:00 02:00 02:35 Temperature 37.6 C 38.2 C H Heart Rate 113 H Heart Rate [ 101 H 103 H Monitoring electrodes] Respiratory 17 17 Rate Blood Pressure Blood Pressure 126/82 H 127/78 [Right Brachial artery] O2 Saturation 96 95 07/02/24 07/02/24 07/02/24 03:00 04:00 05:00 Temperature 38.5 C H 38.7 C H 38.7 C H Heart Rate Heart Rate [ 111 H 104 H 110 H Monitoring electrodes] Respiratory 16 16 17 Rate Blood Pressure Blood Pressure 129/81 H 109/68 129/80 [Right Brachial artery] O2 Saturation 97 97 99 07/02/24 07/02/24 07/02/24 06:00 07:00 07:10 Temperature 38.8 C H 39.0 C H Heart Rate 121 H Heart Rate [ 117 H 119 H Monitoring electrodes] Respiratory 16 Rate Blood Pressure Blood Pressure 145/88 H 137/80 H [Right Brachial artery] O2 Saturation 98 97 07/02/24 07/02/24 07/02/24 08:00 09:00 09:15 Temperature 39.1 C H 38.9 C H Heart Rate 116 H Heart Rate [ 114 H 117 H Monitoring electrodes] Respiratory 16 20 Rate Blood Pressure Blood Pressure 122/70 142/93 H [Right Brachial artery] O2 Saturation 98 97 07/02/24 07/02/24 10:00 11:00 Temperature 38.8 C H 38.8 C H Heart Rate Heart Rate [ 115 H 114 H Monitoring electrodes] Respiratory 18 18 Rate Blood Pressure Blood Pressure 142/82 H 138/89 H [Right Brachial artery] O2 Saturation 97 98 Oxygen O2 Source Mechanical ventilator I&O (Last 24 Hrs): Intake and Output Totals x24h 06/30/24 07/01/24 07/02/24 23:59 23:59 23:59 Intake Total 6690.636 7590.000 Output Total 3275 1050 Balance -1545.021 750.000 General: Other (Chemically sedated on mechanical ventilation) HEENT: Atraumatic, PERRLA Neck: +2 carotid pulse wo bruit Neuro: Other (Chemically sedated on mechanical ventilation, appears to be moving all 4 extremities spontaneously, has not yet opened his eyes) Cardiovascular: Normal S1, Normal S2, Other (Sinus tachycardia with heart rates in 120s) Respiratory: No respiratory distress, Breath sounds nml Abdomen: Normal bowel sounds, Soft, No hepatospenomegaly Extremities: No clubbing, No cyanosis, No edema Skin: No rashes - Results Results: Laboratory Results WBC 7.5 x10^3/uL (4.8-10.8) 07/02/24 04:32 RBC 4.44 10^6/uL (4.70-6.10) L 07/02/24 04:32 Hgb 13.6 g/dL (14.0-18.0) L 07/02/24 04:32 Hct 40.8 % (42.0-52.0) L 07/02/24 04:32 MCV 91.9 fL (80.0-94.0) 07/02/24 04:32 MCH 30.6 pg (27.0-31.0) 07/02/24 04:32 MCHC 33.3 g/dL (32.0-36.0) 07/02/24 04:32 RDW 14.1 % (12.0-15.0) 07/02/24 04:32 Plt Count 121 10^3/uL (130-450) L 07/02/24 04:32 MPV 8.9 fL (7.4-11.4) 07/02/24 04:32 Neut # (Auto) 5.9 10^3/uL (1.5-6.6) 07/02/24 04:32 Lymph # (Auto) 1.1 10^3/uL (1.5-3.5) L 07/02/24 04:32 [place] # (Auto) 0.4 10^3/uL (0.0-1.0) 07/02/24 04:32 Eos # (Auto) 0.1 10^3/uL (0.0-0.7) 07/02/24 04:32 Baso # (Auto) 0.0 10^3/uL (0.0-0.1) 07/02/24 04:32 Absolute Nucleated RBC 0.00 x10^3/uL 07/02/24 04:32 Nucleated RBC % 0.0 /100WBC 07/02/24 04:32 PT 13.9 secs (9.9-12.6) H 07/01/24 17:00 INR 1.3 (0.8-1.2) H 07/01/24 17:00 Bld Gas Analysis Time 0746 07/02/24 07:35 Sample Site LEFT RADIAL 07/02/24 07:35 ABG pH 7.45 (7.35-7.45) 07/02/24 07:35 ABG pCO2 37 mmHg (34-45) 07/02/24 07:35 ABG pO2 73 mmHg (80-100) L 07/02/24 07:35 ABG HCO3 25.5 mmol/L (22.0-26.0) 07/02/24 07:35 ABG Total CO2 26.7 MMOL/L (21.0-29.0) 07/02/24 07:35 ABG O2 Saturation 95 % (94-98) 07/02/24 07:35 ABG Base Excess 1.8 mmol/L (-2.0-3.0) 07/02/24 07:35 Mariano Test POSITIVE 07/02/24 07:35 VBG pH 7.437 (7.31-7.41) H 07/02/24 04:32 Ionized Calcium 1.10 mmol/L (1.15-1.33) L 07/02/24 04:32 Respiration Rate 12 b/min 07/02/24 07:35 O2 Delivery Device VENTILATOR 07/02/24 07:35 Vent Mode ASSIST/CONTROL 07/02/24 07:35 FiO2 40.00 07/02/24 07:35 Tidal Volume 600 mL 07/02/24 07:35 PEEP 5 cmH2O 07/02/24 07:35 Sodium 140 mmol/L (135-145) 07/02/24 04:32 Potassium 3.9 mmol/L (3.5-4.5) 07/02/24 04:32 Chloride 107 mmol/L (101-111) 07/02/24 04:32 Carbon Dioxide 27 mmol/L (21-32) 07/02/24 04:32 Anion Gap 6.0 (6-13) 07/02/24 04:32 BUN 18 mg/dL (6-20) 07/02/24 04:32 Creatinine 1.0 mg/dL (0.6-1.3) 07/02/24 04:32 Estimated GFR (MDRD) 84 (>89) L 07/02/24 04:32 Glucose 101 mg/dL (74-104) 07/02/24 04:32 Calcium 8.8 mg/dL (8.5-10.3) 07/02/24 04:32 Phosphorus 3.4 mg/dL (2.5-5.0) 07/02/24 04:32 Magnesium 1.7 mg/dL (1.7-2.3) 07/02/24 04:32 Total Bilirubin 0.4 mg/dL (0.2-1.0) 07/02/24 04:32 AST 50 IU/L (10-42) H 07/02/24 04:32 ALT 35 IU/L (10-60) 07/02/24 04:32 Alkaline Phosphatase 88 IU/L (42-121) 07/02/24 04:32 Total Creatine Kinase 1996 IU/L (30-223) H* 07/02/24 04:32 Total Protein 6.2 g/dL (6.4-8.9) L 07/02/24 04:32 Albumin 3.8 g/dL (3.2-5.5) 07/02/24 04:32 Globulin 2.4 g/dL (2.1-4.2) 07/02/24 04:32 Albumin/Globulin Ratio 1.6 (1.0-2.2) 07/02/24 04:32 Lipase 29 U/L (11-82) 07/01/24 17:00 TSH 0.48 uIU/mL (0.34-5.60) 07/01/24 17:00 Urine Color YELLOW 07/01/24 17:11 Urine Clarity CLEAR (CLEAR) 07/01/24 17:11 Urine pH 6.0 PH (5.0-7.5) 07/01/24 17:11 Ur Specific [place] 1.020 (1.002-1.030) 07/01/24 17:11 Urine Protein NEGATIVE mg/dL (NEGATIVE) 07/01/24 17:11 Urine Glucose (UA) NEGATIVE mg/dL (NEGATIVE) 07/01/24 17:11 Urine Ketones NEGATIVE mg/dL (NEGATIVE) 07/01/24 17:11 Urine Occult Blood NEGATIVE (NEGATIVE) 07/01/24 17:11 Urine Nitrite NEGATIVE (NEGATIVE) 07/01/24 17:11 Urine Bilirubin NEGATIVE (NEGATIVE) 07/01/24 17:11 Urine Urobilinogen 0.2 (NORMAL) E.U./dL (NORMAL) 07/01/24 17:11 Ur Leukocyte Esterase NEGATIVE (NEGATIVE) 07/01/24 17:11 Ur Microscopic Review NOT INDICATED 07/01/24 17:11 Urine Culture Comments NOT INDICATED 07/01/24 17:11 Nasal Adenovirus (PCR) NOT DETECTED 07/01/24 17:06 Nasal B. parapertussis DNA (PCR) NOT DETECTED 07/01/24 17:06 Nasal Coronavir 229E PCR NOT DETECTED 07/01/24 17:06 Nasal Coronavir HKU1 PCR NOT DETECTED 07/01/24 17:06 Nasal Coronavir NL63 PCR NOT DETECTED 07/01/24 17:06 Nasal Coronavir OC43 PCR NOT DETECTED 07/01/24 17:06 Nasal Enterovir/Rhinovir PCR NOT DETECTED 07/01/24 17:06 Nasal Influenza B PCR NOT DETECTED 07/01/24 17:06 Nasal Influenza A PCR NOT DETECTED 07/01/24 17:06 Nasal Parainfluen 1 PCR NOT DETECTED 07/01/24 17:06 Nasal Parainfluen 2 PCR NOT DETECTED 07/01/24 17:06 Nasal Parainfluen 3 PCR NOT DETECTED 07/01/24 17:06 Nasal Parainfluen 4 PCR NOT DETECTED 07/01/24 17:06 Nasal RSV (PCR) NOT DETECTED 07/01/24 17:06 Nasal Screen MRSA (PCR) NEGATIVE (NEGATIVE) 07/01/24 22:30 Nasal B.pertussis DNA PCR NOT DETECTED 07/01/24 17:06 Nasal C.pneumoniae (PCR) NOT DETECTED 07/01/24 17:06 [place] Human Metapneumo PCR NOT DETECTED 07/01/24 17:06 Nasal M.pneumoniae (PCR) NOT DETECTED 07/01/24 17:06 Nasal SARS-CoV-2 (PCR) NOT DETECTED 07/01/24 17:06 Salicylates < 1.5 mg/dL 07/01/24 17:00 Urine Opiates Screen NEGATIVE (NEGATIVE) 07/01/24 17:11 Ur Buprenorphine Scrn NEGATIVE (NEGATIVE) 07/01/24 17:11 Ur Oxycodone Screen NEGATIVE (NEGATIVE) 07/01/24 17:11 Urine Methadone Screen NEGATIVE (NEGATIVE) 07/01/24 17:11 Acetaminophen < 0.1 ug/mL 07/01/24 17:00 Ur Barbiturates Screen NEGATIVE (NEGATIVE) 07/01/24 17:11 Ur Tricyclics Screen POSITIVE (NEGATIVE) H 07/01/24 17:11 Ur Phencyclidine Scrn NEGATIVE (NEGATIVE) 07/01/24 17:11 Ur Amphetamine Screen NEGATIVE (NEGATIVE) 07/01/24 17:11 U Methamphetamines Scrn NEGATIVE (NEGATIVE) 07/01/24 17:11 U Benzodiazepines Scrn NEGATIVE (NEGATIVE) 07/01/24 17:11 Urine Cocaine Screen NEGATIVE (NEGATIVE) 07/01/24 17:11 U Cannabinoids Screen NEGATIVE (NEGATIVE) 07/01/24 17:11 Ur Drug Screen Comment CUTOFF CONC BELOW: 07/01/24 17:11 Ethyl Alcohol < 10.0 mg/dL 07/01/24 17:00 Sepsis Event Note (H) - Evaluation Current Stage of Sepsis: Ruled out ABX Reporting Has patient been on IV antibiotics over the past 48 hours?: Yes Current Medications - Current Medications Current Medications: Current Medications Generic Name Dose Route Start Last Admin Trade Name Freq PRN Reason Stop Dose Admin Chlorhexidine Gluconate 15 ml 07/02/24 09:00 07/02/24 08:40 Chlorhexidine Gluconate 15 Ml Udc PO 15 ml BID CIRILO Administration Famotidine 20 mg 07/01/24 21:00 07/02/24 08:40 Famotidine 20 Mg/2 Ml Vial IVP 20 mg BID CIRILO Administration Sodium Chloride 1,000 mls @ 150 mls/hr 07/01/24 20:00 07/02/24 06:01 Normal Saline 0.9% IV 150 mls/hr .Q6H40M CRIILO Administration Propofol 1,000 mg in 100 mls @ 7.71 mls/hr 07/01/24 22:30 07/02/24 10:12 Diprivan IV 40 mcg/kg/min .[id number] CIRILO 30.84 mls/hr Administration Protocol 10 MCG/KG/MIN Sodium Chloride 10 ml 07/02/24 01:00 07/02/24 08:41 Sodium Chloride Flush 0.9% 10 Ml Syringe IVP 10 ml 0100,0900,1700 CIRILO Administration Sodium Chloride 10 ml 07/01/24 19:28 07/02/24 06:29 Sodium Chloride Flush 0.9% 10 Ml Syringe IVP 10 ml PRN PRN Administration NEEDED PER PROVIDER ORDERS
[2024-07-02] MEDS: LORazepam 2 MG/ML VIAL IVP PRN (12:23)
[2024-07-02] MEDS: ACETAMINOPHEN 160 MG/5 ML SUSP UDC PO PRN (12:23)
[2024-07-02] MEDS: PIPERACILLIN/TAZOBACTAM 3.375 GM in SODIUM CHLORIDE 0.9% MINIBAG 100 ML IV SCH (12:23)
[2024-07-02] MEDS: ACETAMINOPHEN 1,000 MG/100 ML 1,000 MG/100 ML BAG IV PRN (16:44)
[2024-07-03 05:35] LABS: CALCIUM, IONIZED 1.03 mmol/L (1.15-1.33); VBG PH 7.379 (7.31-7.41)
[2024-07-03 05:42] LABS: MAGNESIUM 1.8 mg/dL (1.7-2.3); PHOSPHORUS 3.3 mg/dL (2.5-5.0)
[2024-07-03] MEDS ORDERED: CALCIUM GLUC 1,000MG/50ML-NACL 1,000 MG/50 ML BAG IV ONE (07:00)
[2024-07-03 07:33] LABS: BASOPHILS % (AUTO) 0.3 %; EOSINOPHILS # (AUTO) 0.1 10^3/uL (0.0-0.7); EOSINOPHILS % (AUTO) 0.8 %; HCT - HEMATOCRIT 36.4 % (42.0-52.0); HGB - HEMOGLOBIN 12.5 g/dL (14.0-18.0); LYMPHOCYTES # (AUTO) 0.8 10^3/uL (1.5-3.5); LYMPHOCYTES % (AUTO) 10.7 %; MEAN CORPUSCULAR HEMOGLOBIN 31.3 pg (27.0-31.0); MEAN CORPUSCULAR HGB CONC 34.3 g/dL (32.0-36.0); MEAN PLATELET VOLUME 8.9 fL (7.4-11.4); MONOCYTES # (AUTO) 0.4 10^3/uL (0.0-1.0); MONOCYTES % (AUTO) 5.1 %; NEUTROPHILS # (AUTO) 6.3 10^3/uL (1.5-6.6); NEUTROPHILS % (AUTO) 82.7 %; PLT - PLATELET COUNT 102 10^3/uL (130-450); RED CELL DISTRIBUTION WIDTH 13.8 % (12.0-15.0); WHITE BLOOD COUNT 7.6 x10^3/uL (4.8-10.8)
[2024-07-03 07:45] LABS: CALCIUM 8.1 mg/dL (8.5-10.3); CREATININE 0.7 mg/dL (0.6-1.3); POTASSIUM 3.5 mmol/L (3.5-4.5)
[2024-07-03] MEDS: POTASSIUM CHLOR 10 MEQ/100 ML 10 MEQ/100 ML BAG IV SCH (08:00)
[2024-07-03] MEDS: MAGNESIUM SULFATE 2 GRAM 2 GM/50 ML BAG IV ONE (08:01)
[2024-07-03] MEDS: methylPREDNISolone SUCCINATE 40 MG/ML VIAL IVP SCH (08:41)
[2024-07-03] MEDS: diphenhydrAMINE INJ 50 MG/ML VIAL IVP SCH (09:25)
--- NOTE | 2024-07-03 11:17 | PROVIDER PROGRESS NOTE ---
Assessment/Plan - Problem List (1) Respiratory failure Qualifiers: Chronicity: acute Respiratory failure complication: hypoxia Qualified Code(s): J96.01 - Acute respiratory failure with hypoxia Assessment/Plan: * Respiratory status is relatively stable * Chest x-ray ordered this a.m., report pending * Continue ventilator support with attempts to wean today as propofol is slowly titrated down to demonstrate patient's neurological response * No leukocytosis currently, but again given patient's significant respiratory compromise on ventilator, will continue empiric IV Zosyn pending further clinical improvement and pending results of sputum cultures (2) Drug overdose Qualifiers: Encounter type: initial encounter Injury intent: intentional self-harm Qualified Code(s): T50.902A - Poisoning by unspecified drugs, medicaments and biological substances, intentional self-harm, initial encounter Assessment/Plan: As above, drug overdose with Lyrica, clonazepam,And methocarbamol Drug overdose is confirmed a suicide attempt given patient has recorded a video to his to say his goodbyes Continue supportive care and problem focused care as above (3) Chronic pain Assessment/Plan: Patient known to have chronic pain secondary to complications from remote lumbar fusion, currently under the management of spine surgery with plans for return to the OR later this month Patient is not on opiates at baseline Once extubated, anticipate pain control will be a concern and will initiate pain medications For the time being, continue sedation as necessary for respiratory support (4) Depression Qualifiers: Depression Type: major depressive disorder Major depression recurrence: unspecified whether recurrent Active/Remission status: currently active Major depression episode severity: severe Psychotic features: without psychotic features Qualified Code(s): F32.2 - Major depressive disorder, single episode, severe without psychotic features Assessment/Plan: Patient with known history of depression followed by outpatient psychiatry * Per patient's at the bedside, he had recently been switched to new medications and psychiatry warned them to anticipate possible worsening of depression and even increased suicidality as a possible side effect * Current outpatient medications include Pristiq, Klonopin, and Seroquel * Will resume home medications when able (5) Suicide attempt Assessment/Plan: As above, suicide attempt with drug overdose Due to suicide attempt, once patient is medically stable, anticipate he will require inpatient psychiatric admission - Current Meds Current Meds: Current Medications Generic Name Dose Route Start Last Admin Trade Name Freq PRN Reason Stop Dose Admin Acetaminophen 160 mg 08/24/24 10:27 07/02/24 12:23 Acetaminophen 160 Mg/5 Ml Susp Udc PO 160 mg Q6HR PRN Administration Pain or Fever > 38C (100.4F) Chlorhexidine Gluconate 15 ml 07/02/24 09:00 07/03/24 08:01 Chlorhexidine Gluconate 15 Ml Udc PO 15 ml BID CIRILO Administration Diphenhydramine HCl 50 mg 07/03/24 09:00 07/03/24 09:25 Diphenhydramine Inj 50 Mg/Ml Vial IVP 07/04/24 09:00 50 mg Q6H CIRILO Administration Famotidine 20 mg 07/01/24 21:00 07/03/24 08:01 Famotidine 20 Mg/2 Ml Vial IVP 20 mg BID CIRILO Administration Sodium Chloride 1,000 mls @ 150 mls/hr 07/01/24 20:00 07/03/24 09:00 Normal Saline 0.9% IV 150 mls/hr .Q6H40M CIRILO Infusion Propofol 1,000 mg in 100 mls @ 7.71 mls/hr 07/01/24 22:30 07/03/24 11:04 Diprivan IV 25 mcg/kg/min .[id number] CIRILO 19.275 mls/hr Titration Protocol 10 MCG/KG/MIN Piperacillin Sod/Tazobactam 100 mls @ 25 mls/hr 07/02/24 12:00 07/03/24 07:45 Sod 3.375 gm/ Sodium Chloride IV Infused Q8H CIRILO Infusion Acetaminophen 1,000 mg in 100 mls @ 400 mls/hr 07/02/24 16:17 07/03/24 06:20 Acetaminophen IV Infused Q6HR PRN Infusion FEVER > 100.5 F Lorazepam 1 mg 07/02/24 11:57 07/03/24 04:41 Lorazepam 2 Mg/Ml Vial IVP 1 mg Q1H PRN Administration Anxiety Methylprednisolone 40 mg 07/03/24 09:00 07/03/24 08:41 Methylprednisolone Succinate 40 Mg/Ml Vial IVP 40 mg BID CIRILO Administration Sodium Chloride 10 ml 07/02/24 01:00 07/03/24 08:02 Sodium Chloride Flush 0.9% 10 Ml Syringe IVP 10 ml 0100,0900,1700 CIRILO Administration Sodium Chloride 10 ml 07/01/24 19:28 07/02/24 06:29 Sodium Chloride Flush 0.9% 10 Ml Syringe IVP 10 ml PRN PRN Administration NEEDED PER PROVIDER ORDERS - Lab Result Lab results reviewed: Yes Fish Bone Diagrams: 07/03/24 07:17 07/03/24 07:17 - Diagnostic Imaging Results Diagnostic Imaging Results: Final report reviewed - Additional Planning My Orders: My Active Orders 07/02/24 10:27 Acetaminophen [Tylenol] 160 mg PO Q6HR PRN 07/02/24 11:57 LORazepam INJ [Ativan Inj (Vial)] 1 mg IVP Q1H PRN 07/02/24 12:00 Piperacillin/Tazobactam [Zosyn] 3.375 gm Sodium Chloride 0.9% Minibag [Normal Saline 0.9% Minibag] 100 ml IV Q8H 07/02/24 16:17 Acetaminophen 1,000 mg/100 ml [Acetaminophen] 1,000 mg in 100 ml IV Q6HR 07/02/24 17:30 NonViolent Restraint(s) Q24H Restraint(s) Assessment [RC] Q90M 07/03/24 09:00 diphenhydrAMINE INJ [Benadryl Inj] 50 mg IVP Q6H methylPREDNISolone SUCCINATE [SOLU-Medrol (40MG VIAL)] 40 mg IVP BID 07/03/24 12:00 MAGNESIUM [CHEM] Timed POTASSIUM [CHEM] Timed PROCALCITONIN [CHEM] Timed 07/04/24 05:00 BMP - BASIC METABOLIC PANEL [CHEM] DAILYLAB CBC W/O DIFF (HEMOGRAM) [HEME] DAILYLAB 07/05/24 05:00 BMP - BASIC METABOLIC PANEL [CHEM] DAILYLAB CBC W/O DIFF (HEMOGRAM) [HEME] DAILYLAB 07/06/24 05:00 BMP - BASIC METABOLIC PANEL [CHEM] DAILYLAB CBC W/O DIFF (HEMOGRAM) [HEME] DAILYLAB Subjective - Subjective Patient Reports: Other (Chemically sedated, on mechanical ventilator) Objective Vital Signs: Vital Signs - 24 hr 07/02/24 07/02/24 07/02/24 12:00 13:00 13:32 Temperature 38.9 C H 39.1 C H Heart Rate 112 H Heart Rate [ 113 H 113 H Monitoring electrodes] Respiratory 17 17 Rate Blood Pressure 131/88 H 142/87 H [Right Brachial artery] O2 Saturation 100 98 07/02/24 07/02/24 07/02/24 13:57 15:00 15:54 Temperature 39 C H 39.1 C H Heart Rate 109 H Heart Rate [ 114 H 112 H Monitoring electrodes] Respiratory 20 18 Rate Blood Pressure 146/96 H 150/85 H [Right Brachial artery] O2 Saturation 98 99 07/02/24 07/02/24 07/02/24 16:00 17:00 18:00 Temperature 39.5 C H 39.2 C H 38.8 C H Heart Rate Heart Rate [ 113 H 112 H 103 H Monitoring electrodes] Respiratory 18 18 16 Rate Blood Pressure 138/85 H 145/90 H 104/70 [Right Brachial artery] O2 Saturation 97 97 98 07/02/24 07/02/24 07/02/24 18:03 19:00 19:07 Temperature 38.2 C H Heart Rate 103 H 101 H Heart Rate [ 102 H Monitoring electrodes] Respiratory 16 Rate Blood Pressure 123/76 [Right Brachial artery] O2 Saturation 98 07/02/24 07/02/24 07/02/24 20:00 21:00 21:05 Temperature 38.3 C H 38.4 C H Heart Rate 108 H Heart Rate [ 103 H 104 H Monitoring electrodes] Respiratory 17 18 Rate Blood Pressure 138/79 H 135/82 H [Right Brachial artery] O2 Saturation 98 98 07/02/24 07/02/24 07/02/24 22:00 23:00 23:30 Temperature 38.5 C H 38.5 C H Heart Rate 91 Heart Rate [ 104 H 98 Monitoring electrodes] Respiratory 17 15 Rate Blood Pressure 140/80 H 112/65 [Right Brachial artery] O2 Saturation 98 95 07/03/24 07/03/24 07/03/24 00:00 01:00 01:53 Temperature 37.8 C 37.2 C Heart Rate 87 Heart Rate [ 90 90 Monitoring electrodes] Respiratory 15 15 Rate Blood Pressure 109/63 115/67 [Right Brachial artery] O2 Saturation 96 99 07/03/24 07/03/24 07/03/24 02:00 03:00 03:23 Temperature 37.2 C 37.0 C Heart Rate 88 Heart Rate [ 89 86 Monitoring electrodes] Respiratory 15 16 Rate Blood Pressure 119/69 127/81 H [Right Brachial artery] O2 Saturation 99 98 07/03/24 07/03/24 07/03/24 03:57 05:00 05:20 Temperature 37.2 C 37.5 C Heart Rate 96 Heart Rate [ 92 98 Monitoring electrodes] Respiratory 15 18 Rate Blood Pressure 125/77 129/84 H [Right Brachial artery] O2 Saturation 98 97 07/03/24 07/03/24 07/03/24 06:00 07:00 07:23 Temperature 37.9 C 38.1 C H Heart Rate 88 Heart Rate [ 97 91 Monitoring electrodes] Respiratory 16 15 Rate Blood Pressure 131/72 H 116/69 [Right Brachial artery] O2 Saturation 97 97 07/03/24 07/03/24 07/03/24 07:25 08:29 09:23 Temperature 37.9 C 37.3 C Heart Rate 95 Heart Rate [ 88 88 Monitoring electrodes] Respiratory 14 16 Rate Blood Pressure 116/69 104/64 [Right Brachial artery] O2 Saturation 96 99 07/03/24 07/03/24 09:51 10:48 Temperature 37.6 C 37.9 C Heart Rate Heart Rate [ 92 97 Monitoring electrodes] Respiratory 16 17 Rate Blood Pressure 124/76 129/74 [Right Brachial artery] O2 Saturation 97 96 Oxygen O2 Source Mechanical ventilator I&O (Last 24 Hrs): Intake and Output Totals x24h 07/01/24 07/02/24 07/03/24 23:59 23:59 23:59 Intake Total 8917.681 6128.000 2527.341 Output Total 3275 3125 2095 Balance -6611.357 9943.000 432.341 General: No acute distress, Other (Chemically sedated on mechanical ventilator) HEENT: Atraumatic, Other (Minimal eye opening, pupils reactive to light) Neuro: Other (Chemically sedated) Cardiovascular: Regular rate, Normal S1, Normal S2 Respiratory: No respiratory distress, Breath sounds nml Abdomen: Normal bowel sounds, Soft, No hepatospenomegaly Extremities: No clubbing, No cyanosis, No edema Skin: No rashes - Results Results: Laboratory Results WBC 7.6 x10^3/uL (4.8-10.8) 07/03/24 07:17 RBC 4.00 10^6/uL (4.70-6.10) L 07/03/24 07:17 Hgb 12.5 g/dL (14.0-18.0) L 07/03/24 07:17 Hct 36.4 % (42.0-52.0) L 07/03/24 07:17 MCV 91.0 fL (80.0-94.0) 07/03/24 07:17 MCH 31.3 pg (27.0-31.0) H 07/03/24 07:17 MCHC 34.3 g/dL (32.0-36.0) 07/03/24 07:17 RDW 13.8 % (12.0-15.0) 07/03/24 07:17 Plt Count 102 10^3/uL (130-450) L 07/03/24 07:17 MPV 8.9 fL (7.4-11.4) 07/03/24 07:17 Neut # (Auto) 6.3 10^3/uL (1.5-6.6) 07/03/24 07:17 Lymph # (Auto) 0.8 10^3/uL (1.5-3.5) L 07/03/24 07:17 [place] # (Auto) 0.4 10^3/uL (0.0-1.0) 07/03/24 07:17 Eos # (Auto) 0.1 10^3/uL (0.0-0.7) 07/03/24 07:17 Baso # (Auto) 0.0 10^3/uL (0.0-0.1) 07/03/24 07:17 Absolute Nucleated RBC 0.00 x10^3/uL 07/03/24 07:17 Nucleated RBC % 0.0 /100WBC 07/03/24 07:17 PT 13.9 secs (9.9-12.6) H 07/01/24 17:00 INR 1.3 (0.8-1.2) H 07/01/24 17:00 Bld Gas Analysis Time 0746 07/02/24 07:35 Sample Site LEFT RADIAL 07/02/24 07:35 ABG pH 7.45 (7.35-7.45) 07/02/24 07:35 ABG pCO2 37 mmHg (34-45) 07/02/24 07:35 ABG pO2 73 mmHg (80-100) L 07/02/24 07:35 ABG HCO3 25.5 mmol/L (22.0-26.0) 07/02/24 07:35 ABG Total CO2 26.7 MMOL/L (21.0-29.0) 07/02/24 07:35 ABG O2 Saturation 95 % (94-98) 07/02/24 07:35 ABG Base Excess 1.8 mmol/L (-2.0-3.0) 07/02/24 07:35 Mariano Test POSITIVE 07/02/24 07:35 VBG pH 7.379 (7.31-7.41) 07/03/24 04:30 Ionized Calcium 1.03 mmol/L (1.15-1.33) L 07/03/24 04:30 Respiration Rate 12 b/min 07/02/24 07:35 O2 Delivery Device VENTILATOR 07/02/24 07:35 Vent Mode ASSIST/CONTROL 07/02/24 07:35 FiO2 40.00 07/02/24 07:35 Tidal Volume 600 mL 07/02/24 07:35 PEEP 5 cmH2O 07/02/24 07:35 Sodium 137 mmol/L (135-145) 07/03/24 07:17 Potassium 3.5 mmol/L (3.5-4.5) 07/03/24 07:17 Chloride 105 mmol/L (101-111) 07/03/24 07:17 Carbon Dioxide 26 mmol/L (21-32) 07/03/24 07:17 Anion Gap 6.0 (6-13) 07/03/24 07:17 BUN 11 mg/dL (6-20) 07/03/24 07:17 Creatinine 0.7 mg/dL (0.6-1.3) 07/03/24 07:17 Estimated GFR (MDRD) 126 (>89) 07/03/24 07:17 Glucose 108 mg/dL (74-104) H 07/03/24 07:17 Calcium 8.1 mg/dL (8.5-10.3) L 07/03/24 07:17 Phosphorus 3.3 mg/dL (2.5-5.0) 07/03/24 04:30 Magnesium 1.8 mg/dL (1.7-2.3) 07/03/24 04:30 Total Bilirubin 0.4 mg/dL (0.2-1.0) 07/02/24 04:32 AST 50 IU/L (10-42) H 07/02/24 04:32 ALT 35 IU/L (10-60) 07/02/24 04:32 Alkaline Phosphatase 88 IU/L (42-121) 07/02/24 04:32 Total Creatine Kinase 1996 IU/L (30-223) H* 07/02/24 04:32 Total Protein 6.2 g/dL (6.4-8.9) L 07/02/24 04:32 Albumin 3.8 g/dL (3.2-5.5) 07/02/24 04:32 Globulin 2.4 g/dL (2.1-4.2) 07/02/24 04:32 Albumin/Globulin Ratio 1.6 (1.0-2.2) 07/02/24 04:32 Lipase 29 U/L (11-82) 07/01/24 17:00 TSH 0.48 uIU/mL (0.34-5.60) 07/01/24 17:00 Urine Color YELLOW 07/01/24 17:11 Urine Clarity CLEAR (CLEAR) 07/01/24 17:11 Urine pH 6.0 PH (5.0-7.5) 07/01/24 17:11 Ur Specific [place] 1.020 (1.002-1.030) 07/01/24 17:11 Urine Protein NEGATIVE mg/dL (NEGATIVE) 07/01/24 17:11 Urine Glucose (UA) NEGATIVE mg/dL (NEGATIVE) 07/01/24 17:11 Urine Ketones NEGATIVE mg/dL (NEGATIVE) 07/01/24 17:11 Urine Occult Blood NEGATIVE (NEGATIVE) 07/01/24 17:11 Urine Nitrite NEGATIVE (NEGATIVE) 07/01/24 17:11 Urine Bilirubin NEGATIVE (NEGATIVE) 07/01/24 17:11 Urine Urobilinogen 0.2 (NORMAL) E.U./dL (NORMAL) 07/01/24 17:11 Ur Leukocyte Esterase NEGATIVE (NEGATIVE) 07/01/24 17:11 Ur Microscopic Review NOT INDICATED 07/01/24 17:11 Urine Culture Comments NOT INDICATED 07/01/24 17:11 Nasal Adenovirus (PCR) NOT DETECTED 07/01/24 17:06 Nasal B. parapertussis DNA (PCR) NOT DETECTED 07/01/24 17:06 Nasal Coronavir 229E PCR NOT DETECTED 07/01/24 17:06 Nasal Coronavir HKU1 PCR NOT DETECTED 07/01/24 17:06 Nasal Coronavir NL63 PCR NOT DETECTED 07/01/24 17:06 Nasal Coronavir OC43 PCR NOT DETECTED 07/01/24 17:06 Nasal Enterovir/Rhinovir PCR NOT DETECTED 07/01/24 17:06 Nasal Influenza B PCR NOT DETECTED 07/01/24 17:06 Nasal Influenza A PCR NOT DETECTED 07/01/24 17:06 Nasal Parainfluen 1 PCR NOT DETECTED 07/01/24 17:06 Nasal Parainfluen 2 PCR NOT DETECTED 07/01/24 17:06 Nasal Parainfluen 3 PCR NOT DETECTED 07/01/24 17:06 Nasal Parainfluen 4 PCR NOT DETECTED 07/01/24 17:06 Nasal RSV (PCR) NOT DETECTED 07/01/24 17:06 Nasal Screen MRSA (PCR) NEGATIVE (NEGATIVE) 07/01/24 22:30 Nasal B.pertussis DNA PCR NOT DETECTED 07/01/24 17:06 Nasal C.pneumoniae (PCR) NOT DETECTED 07/01/24 17:06 [place] Human Metapneumo PCR NOT DETECTED 07/01/24 17:06 Nasal M.pneumoniae (PCR) NOT DETECTED 07/01/24 17:06 Nasal SARS-CoV-2 (PCR) NOT DETECTED 07/01/24 17:06 Salicylates < 1.5 mg/dL 07/01/24 17:00 Urine Opiates Screen NEGATIVE (NEGATIVE) 07/01/24 17:11 Ur Buprenorphine Scrn NEGATIVE (NEGATIVE) 07/01/24 17:11 Ur Oxycodone Screen NEGATIVE (NEGATIVE) 07/01/24 17:11 Urine Methadone Screen NEGATIVE (NEGATIVE) 07/01/24 17:11 Acetaminophen < 0.1 ug/mL 07/01/24 17:00 Ur Barbiturates Screen NEGATIVE (NEGATIVE) 07/01/24 17:11 Ur Tricyclics Screen POSITIVE (NEGATIVE) H 07/01/24 17:11 Ur Phencyclidine Scrn NEGATIVE (NEGATIVE) 07/01/24 17:11 Ur Amphetamine Screen NEGATIVE (NEGATIVE) 07/01/24 17:11 U Methamphetamines Scrn NEGATIVE (NEGATIVE) 07/01/24 17:11 U Benzodiazepines Scrn NEGATIVE (NEGATIVE) 07/01/24 17:11 Urine Cocaine Screen NEGATIVE (NEGATIVE) 07/01/24 17:11 U Cannabinoids Screen NEGATIVE (NEGATIVE) 07/01/24 17:11 Ur Drug Screen Comment CUTOFF CONC BELOW: 07/01/24 17:11 Ethyl Alcohol < 10.0 mg/dL 07/01/24 17:00 Sepsis Event Note (H) - Evaluation Current Stage of Sepsis: Ruled out ABX Reporting Has patient been on IV antibiotics over the past 48 hours?: Yes Current Medications - Current Medications Current Medications: Current Medications Generic Name Dose Route Start Last Admin Trade Name Freq PRN Reason Stop Dose Admin Acetaminophen 160 mg 07/02/24 10:27 07/02/24 12:23 Acetaminophen 160 Mg/5 Ml Susp Udc PO 160 mg Q6HR PRN Administration Pain or Fever > 38C (100.4F) Chlorhexidine Gluconate 15 ml 07/02/24 09:00 07/03/24 08:01 Chlorhexidine Gluconate 15 Ml Udc PO 15 ml BID CIRILO Administration Diphenhydramine HCl 50 mg 07/03/24 09:00 07/03/24 09:25 Diphenhydramine Inj 50 Mg/Ml Vial IVP 07/04/24 09:00 50 mg Q6H CIRILO Administration Famotidine 20 mg 07/01/24 21:00 07/03/24 08:01 Famotidine 20 Mg/2 Ml Vial IVP 20 mg BID CIRILO Administration Sodium Chloride 1,000 mls @ 150 mls/hr 07/01/24 20:00 07/03/24 09:00 Normal Saline 0.9% IV 150 mls/hr .Q6H40M CIRILO Infusion Propofol 1,000 mg in 100 mls @ 7.71 mls/hr 07/01/24 22:30 07/03/24 11:04 Diprivan IV 25 mcg/kg/min .[id number] CIRILO 19.275 mls/hr Titration Protocol 10 MCG/KG/MIN Piperacillin Sod/Tazobactam 100 mls @ 25 mls/hr 07/02/24 12:00 07/03/24 07:45 Sod 3.375 gm/ Sodium Chloride IV Infused Q8H CIRLIO Infusion Acetaminophen 1,000 mg in 100 mls @ 400 mls/hr 07/02/24 16:17 07/03/24 11:18 Acetaminophen IV 400 mls/hr Q6HR PRN Administration FEVER > 100.5 F Lorazepam 1 mg 07/02/24 11:57 07/03/24 04:41 Lorazepam 2 Mg/Ml Vial IVP 1 mg Q1H PRN Administration Anxiety Methylprednisolone 40 mg 07/03/24 09:00 07/03/24 08:41 Methylprednisolone Succinate 40 Mg/Ml Vial IVP 40 mg BID CIRILO Administration Sodium Chloride 10 ml 07/02/24 01:00 07/03/24 08:02 Sodium Chloride Flush 0.9% 10 Ml Syringe IVP 10 ml 0100,0900,1700 CIRILO Administration Sodium Chloride 10 ml 07/01/24 19:28 07/02/24 06:29 Sodium Chloride Flush 0.9% 10 Ml Syringe IVP 10 ml PRN PRN Administration NEEDED PER PROVIDER ORDERS
[2024-07-03 12:18] LABS: MAGNESIUM 2.1 mg/dL (1.7-2.3); POTASSIUM 4.3 mmol/L (3.5-4.5)
[2024-07-03 12:28] LABS: PROCALCITONIN 0.28 ng/mL (<0.5)
[2024-07-03] MEDS: KETOROLAC 30 MG/ML VIAL IVP PRN (13:07)
[2024-07-03] MEDS: DEXMEDETOMIDINE 400 MCG/100 ML 100 ML IV PRN (21:29)
[2024-07-03] MEDS: clonazePAM 0.5 MG TABLET PO SCH (21:34)
--- NOTE | 2024-07-03 22:03 | XRAY Report ---
PROCEDURE: Chest 1V INDICATIONS: Intubated patient, eval for improvement TECHNIQUE: One view of the chest was acquired. COMPARISON: CXR 07/02/2024. FINDINGS: Surgical changes and devices: Endotracheal tube in the mid trachea. Enteric tube coursing into the s tomach.. Lungs and pleura: No pleural effusions or pneumothorax. Mild past the left lung base. Possible opaci ty at the right infrahilar space. Mediastinum: Mediastinal contours appear normal. Heart size is normal. Bones and chest wall: No suspicious bony lesions. Overlying soft tissues appear unremarkable. IMPRESSION: Suspect mild bilateral airspace opacity. Overall not significantly changed. Tubes project in the expected location. Reviewed by: Brett Kenyon MD on 07/03/2024 10:02 PM PDT Approved by: Brett Kenyon MD on 07/03/2024 10:02 PM PDT Station ID: [id number]
[2024-07-04 05:05] LABS: CALCIUM, IONIZED 1.09 mmol/L (1.15-1.33); HCT - HEMATOCRIT 38.6 % (42.0-52.0); HGB - HEMOGLOBIN 12.8 g/dL (14.0-18.0); MEAN CORPUSCULAR HEMOGLOBIN 30.6 pg (27.0-31.0); MEAN CORPUSCULAR HGB CONC 33.2 g/dL (32.0-36.0); MEAN CORPUSCULAR VOLUME 92.3 fL (80.0-94.0); MEAN PLATELET VOLUME 9.2 fL (7.4-11.4); RED BLOOD COUNT 4.18 10^6/uL (4.70-6.10); RED CELL DISTRIBUTION WIDTH 13.4 % (12.0-15.0); VBG PH 7.428 (7.31-7.41); WHITE BLOOD COUNT 11.3 x10^3/uL (4.8-10.8)
[2024-07-04 05:21] LABS: CALCIUM 8.7 mg/dL (8.5-10.3); CREATININE 0.7 mg/dL (0.6-1.3); POTASSIUM 4.5 mmol/L (3.5-4.5)
[2024-07-04 05:22] LABS: MAGNESIUM 2.1 mg/dL (1.7-2.3)
[2024-07-04 05:27] LABS: PHOSPHORUS 2.8 mg/dL (2.5-5.0)
[2024-07-04] MEDS ORDERED: DESVENLAFAXINE SUCCINATE 50 MG PO SCH (09:00)
[2024-07-04] MEDS: PATIENT OWN MED PO SCH (09:07)
[2024-07-04] MEDS ORDERED: ONDANSETRON ODT 4 MG TABLET TL PRN (15:06)
--- NOTE | 2024-07-04 16:42 | PROVIDER PROGRESS NOTE ---
Assessment/Plan - Problem List (1) Respiratory failure Qualifiers: Chronicity: acute Respiratory failure complication: hypoxia Qualified Code(s): J96.01 - Acute respiratory failure with hypoxia Assessment/Plan: His respiratory failure has resolved. While intubated there was some concern for the possibility of aspiration pneumonia as well as mild pulmonary edema. He had developed fevers over the course of the first 48 to 72 hours of this admission but they have since subsided. He is now saturating well on room air, able to speak in complete sentences, with clear lungs, and no tachypnea or dyspnea. Respiratory culture is positive for group B strep. Patient has been on Zosyn since day 1 of hospital admission. He appears to be clinically significantly improved and is likely ready to stepdown to p.o. antibiotics. However, his WBC remains slightly elevated. I strongly suspect that this is secondary to the steroids he was given for the brief course of angioedema that he had, but given the severity of his respiratory failure requiring intubation, I would like to be on the conservative side and await resolution of the leukocytosis with tomorrow's labs prior to discontinuing the Zosyn. (2) Drug overdose Qualifiers: Encounter type: initial encounter Injury intent: intentional self-harm Qualified Code(s): T50.902A - Poisoning by unspecified drugs, medicaments and biological substances, intentional self-harm, initial encounter Assessment/Plan: The patient is now back at mental status baseline. He currently denies any suicidal ideations and strongly feels that his suicidal thoughts were side effects of his medications. He states that he was previously on Prozac which she did not like, however he was transitioned in early June from Prozac to Pristiq and is transition caused significant suicidal ideation and in fact in mid June he states there was a particular day where he almost attempted suicide because of it. I had a very long conversation with the patient regarding his medications. I also discussed the matter with a psychiatrist in the same group as his primary care psychiatrist who was not available due to leave of absence. I spoke with Dr. Lowery, regarding the best approach with his psychiatric medications. We both agreed, that given the severity of his suicide attempt, and his clinical improvement with his mental status being much better and denying any depression or suicidal ideation at the moment, it would be best to avoid reintroducing any psychiatric medications due to the risk of increasing suicidality. Strongly encouraged that the patient try his best to review his health issues in a comprehensive manner to try to minimize medications given their propensity to cause serious side effects. For example, he feels that his suicidal thoughts were a side effect of his antidepressants. His antidepressants are being used to treat his chronic pain. In addition, he has obstructive sleep apnea and wakes up very fatigued, despite using his CPAP device at maximum settings. For this, he was prescribed modafinil to help wake him up in the morning. I postulated with the patient that perhaps his significant fatigue in the morning is not secondary to a lack of response of the CHAIM to the CPAP, but rather could be secondary to high doses of Seroquel including 100 mg and up to 200 mg at night, clonazepam 0.5 mg at night, methocarbamol 750 mg at night, and Lyrica 150 mg at night. Strongly suspect that his morning fatigue is related to the pharmacy effect. I suggested he also follow-up with ENT who suggested he have a rhinoplasty to help with his obstructive sleep apnea. With respect to pain medications, I applaud his decision to avoid opiates. I do think at this time it is relatively safe to resume methocarbamol and I enc ouraged him to follow-up with a comprehensive pain clinic to explore other ancillary options such as pain stimulator, or intrathecal pain pump. He states he has already maximizedepidural steroid injections. Again with respect to his psychiatric care, once cleared from here, which is likely to be tomorrow if his leukocytosis resolved, he will need to be transferred to [facility] for inpatient psychiatric care. (3) Chronic pain Assessment/Plan: As above, very lengthy discussion had with the patient today regarding his chronic pain. I encouraged him to follow-up with a pain management clinic. Will resume his methocarbamol tonight as well as his Lyrica. Will monitor for symptoms of hypersomnolence as a possible consequence of resuming these 2 medications. If so, would recommend titrating down on the doses. (4) Depression Qualifiers: Depression Type: major depressive disorder Major depression recurrence: unspecified whether recurrent Active/Remission status: currently active Major depression episode severity: severe Psychotic features: without psychotic features Qualified Code(s): F32.2 - Major depressive disorder, single episode, severe without psychotic features Assessment/Plan: As above. Discussed with patient's psychiatrist partner. Will defer resuming any psychiatric medications including Pristiq, Seroquel, and modafinil. The decision to resume these medications should be made by inpatient psychiatry and/or his primary psychiatrist upon discharge. (5) Suicide attempt Assessment/Plan: As above, currently much better and medically improved and nearly to baseline. - Current Meds Current Meds: Current Medications Generic Name Dose Route Start Last Admin Trade Name Freq PRN Reason Stop Dose Admin Acetaminophen 160 mg 07/02/24 10:27 07/02/24 12:23 Acetaminophen 160 Mg/5 Ml Susp Udc PO 160 mg Q6HR PRN Administration Pain or Fever > 38C (100.4F) Piperacillin Sod/Tazobactam 100 mls @ 25 mls/hr 07/02/24 12:00 07/04/24 12:00 Sod 3.375 gm/ Sodium Chloride IV 25 mls/hr Q8H CIRILO Administration Ketorolac Tromethamine 30 mg 07/03/24 13:01 07/04/24 10:30 Ketorolac 30 Mg/Ml Vial IVP 07/08/24 13:00 30 mg Q6HR PRN Administration Severe Pain (Level 7-10) Lorazepam 1 mg 07/02/24 11:57 07/03/24 23:17 Lorazepam 2 Mg/Ml Vial IVP 1 mg Q1H PRN Administration Anxiety Patient Own Medication 1 each 07/04/24 09:00 07/04/24 09:07 Patient Own Med PO Not Given DAILY CIRILO Sodium Chloride 10 ml 07/02/24 01:00 07/04/24 08:40 Sodium Chloride Flush 0.9% 10 Ml Syringe IVP 10 ml 0100,0900,1700 CIRILO Administration Sodium Chloride 10 ml 07/01/24 19:28 07/02/24 06:29 Sodium Chloride Flush 0.9% 10 Ml Syringe IVP 10 ml PRN PRN Administration NEEDED PER PROVIDER ORDERS - Lab Result Fish Bone Diagrams: 07/04/24 04:34 07/04/24 04:34 - Diagnostic Imaging Results Diagnostic Imaging Results: Final report reviewed - Additional Planning Condition/Complexity: Improved My Orders: My Active Orders 07/03/24 18:00 Home CPAP/BiPAP/NPPV [RC] .HS 07/04/24 09:00 Patient Own Med 1 each PO DAILY 07/04/24 15:05 Howard Discontinuation [RC] ONCE 07/04/24 15:06 Ondansetron Odt [Zofran Odt] 4 mg TL Q4HR PRN 07/04/24 16:34 methocarbamoL [Robaxin] 750 mg PO TID PRN 07/04/24 16:36 clonazePAM [KlonoPIN] 0.5 mg PO BID PRN 07/04/24 21:00 Pregabalin [Lyrica] 100 mg PO BID Pregabalin [Lyrica] 50 mg PO BID 07/05/24 05:00 BMP - BASIC METABOLIC PANEL [CHEM] DAILYLAB CBC W/O DIFF (HEMOGRAM) [HEME] DAILYLAB 07/06/24 05:00 BMP - BASIC METABOLIC PANEL [CHEM] DAILYLAB CBC W/O DIFF (HEMOGRAM) [HEME] DAILYLAB Consult/Specialty: Psychiatry Plan Discussed with:: Patient, Family, Spouse, Other (Friend) Time Spent: Greater than 60 minutes Objective Vital Signs: Vital Signs - 24 hr 07/03/24 07/03/24 07/03/24 17:00 17:25 18:00 Temperature 37.5 C 37.5 C Heart Rate [ 100 105 H 108 H Monitoring electrodes] Respiratory 20 19 26 H Rate Blood Pressure 121/70 121/77 [Right Brachial artery] O2 Saturation 94 95 93 If not protocol 8 6 5 : Oxygen Flow, liters/minute 07/03/24 07/03/24 07/03/24 18:56 20:00 21:12 Temperature 37.6 C 37.5 C 37.5 C Heart Rate [ 104 H 102 H 105 H Monitoring electrodes] Respiratory 22 26 H 20 Rate Blood Pressure 142/93 H 146/79 H 136/77 H [Right Brachial artery] O2 Saturation 93 93 89 L If not protocol 5 3 : Oxygen Flow, liters/minute 07/03/24 07/03/24 07/03/24 21:15 21:20 21:36 Temperature Heart Rate [ 102 H Monitoring electrodes] Respiratory 18 Rate Blood Pressure 141/84 H [Right Brachial artery] O2 Saturation 90 L 94 95 If not protocol 2 4 4 : Oxygen Flow, liters/minute 07/03/24 07/03/24 07/03/24 21:45 22:00 23:00 Temperature 37.4 C 37.0 C Heart Rate [ 97 99 82 Monitoring electrodes] Respiratory 20 20 21 Rate Blood Pressure 128/81 H 140/85 H 150/99 H [Right Brachial artery] O2 Saturation 93 93 95 If not protocol 4 4 4 : Oxygen Flow, liters/minute 07/04/24 07/04/24 07/04/24 00:00 01:00 01:59 Temperature 36.9 C 36.8 C 36.6 C Heart Rate [ 72 66 65 Monitoring electrodes] Respiratory 17 20 19 Rate Blood Pressure 151/92 H 150/85 H 149/90 H [Right Brachial artery] O2 Saturation 95 96 96 If not protocol 4 4 4 : Oxygen Flow, liters/minute 07/04/24 07/04/24 07/04/24 03:00 04:00 05:00 Temperature 36.6 C 36.6 C 36.6 C Heart Rate [ 63 64 61 Monitoring electrodes] Respiratory 18 17 18 Rate Blood Pressure 148/86 H 155/92 H 154/82 H [Right Brachial artery] O2 Saturation 96 97 97 If not protocol 4 4 4 : Oxygen Flow, liters/minute 07/04/24 07/04/24 07/04/24 06:00 07:00 08:00 Temperature 36.5 C 36.6 C 36.6 C Heart Rate [ 61 62 61 Monitoring electrodes] Respiratory 16 19 17 Rate Blood Pressure 156/89 H 157/90 H 152/88 H [Right Brachial artery] O2 Saturation 97 97 97 If not protocol 4 4 2 : Oxygen Flow, liters/minute 07/04/24 07/04/24 07/04/24 09:00 09:15 10:00 Temperature 36.6 C 36.6 C Heart Rate [ 60 63 Monitoring electrodes] Respiratory 15 13 Rate Blood Pressure 164/101 H 161/91 H 154/89 H [Right Brachial artery] O2 Saturation 93 94 If not protocol : Oxygen Flow, liters/minute 07/04/24 07/04/24 07/04/24 11:00 12:00 13:00 Temperature 36.6 C 36.7 C 83 C H Heart Rate [ 60 57 L 80 Monitoring electrodes] Respiratory 16 14 19 Rate Blood Pressure 148/87 H 153/88 H 152/86 H [Right Brachial artery] O2 Saturation 93 94 93 If not protocol : Oxygen Flow, liters/minute 07/04/24 07/04/24 07/04/24 14:00 15:00 16:00 Temperature 36.8 C 37.0 C 37.2 C Heart Rate [ 73 86 94 Monitoring electrodes] Respiratory 25 H 22 26 H Rate Blood Pressure 175/85 H 138/76 H 118/56 L [Right Brachial artery] O2 Saturation 92 94 94 If not protocol : Oxygen Flow, liters/minute Oxygen O2 Source Room air I&O (Last 24 Hrs): Intake and Output Totals x24h 07/02/24 07/03/24 07/04/24 23:59 23:59 23:59 Intake Total 4385.000 4321.126 3469.620 Output Total 3125 3782 1704 Balance 1260.000 510.734 5278.620 General: Alert, Oriented x3, Cooperative, No acute distress HEENT: Atraumatic, EOMI Neuro: Alert Cardiovascular: Regular rate, Normal S1, Normal S2 Respiratory: No respiratory distress, Breath sounds nml Abdomen: No tenderness, No hepatospenomegaly Extremities: No clubbing, No cyanosis, No edema Skin: No rashes, No breakdown, No significant lesion - Results Results: Laboratory Results WBC 11.3 x10^3/uL (4.8-10.8) H 07/04/24 04:34 RBC 4.18 10^6/uL (4.70-6.10) L 07/04/24 04:34 Hgb 12.8 g/dL (14.0-18.0) L 07/04/24 04:34 Hct 38.6 % (42.0-52.0) L 07/04/24 04:34 MCV 92.3 fL (80.0-94.0) 07/04/24 04:34 MCH 30.6 pg (27.0-31.0) 07/04/24 04:34 MCHC 33.2 g/dL (32.0-36.0) 07/04/24 04:34 RDW 13.4 % (12.0-15.0) 07/04/24 04:34 Plt Count 118 10^3/uL (130-450) L 07/04/24 04:34 MPV 9.2 fL (7.4-11.4) 07/04/24 04:34 Neut # (Auto) 6.3 10^3/uL (1.5-6.6) 07/03/24 07:17 Lymph # (Auto) 0.8 10^3/uL (1.5-3.5) L 07/03/24 07:17 [place] # (Auto) 0.4 10^3/uL (0.0-1.0) 07/03/24 07:17 Eos # (Auto) 0.1 10^3/uL (0.0-0.7) 07/03/24 07:17 Baso # (Auto) 0.0 10^3/uL (0.0-0.1) 07/03/24 07:17 Absolute Nucleated RBC 0.00 x10^3/uL 07/03/24 07:17 Nucleated RBC % 0.0 /100WBC 07/03/24 07:17 PT 13.9 secs (9.9-12.6) H 07/01/24 17:00 INR 1.3 (0.8-1.2) H 07/01/24 17:00 Bld Gas Analysis Time 0746 07/02/24 07:35 Sample Site LEFT RADIAL 07/02/24 07:35 ABG pH 7.45 (7.35-7.45) 07/02/24 07:35 ABG pCO2 37 mmHg (34-45) 07/02/24 07:35 ABG pO2 73 mmHg (80-100) L 07/02/24 07:35 ABG HCO3 25.5 mmol/L (22.0-26.0) 07/02/24 07:35 ABG Total CO2 26.7 MMOL/L (21.0-29.0) 07/02/24 07:35 ABG O2 Saturation 95 % (94-98) 07/02/24 07:35 ABG Base Excess 1.8 mmol/L (-2.0-3.0) 07/02/24 07:35 Mariano Test POSITIVE 07/02/24 07:35 VBG pH 7.428 (7.31-7.41) H 07/04/24 04:34 Ionized Calcium 1.09 mmol/L (1.15-1.33) L 07/04/24 04:34 Respiration Rate 12 b/min 07/02/24 07:35 O2 Delivery Device VENTILATOR 07/02/24 07:35 Vent Mode ASSIST/CONTROL 07/02/24 07:35 FiO2 40.00 08/24/24 07:35 Tidal Volume 600 mL 07/02/24 07:35 PEEP 5 cmH2O 07/02/24 07:35 Sodium 139 mmol/L (135-145) 07/04/24 04:34 Potassium 4.5 mmol/L (3.5-4.5) 07/04/24 04:34 Potassium 4.5 mmol/L (3.5-4.5) 07/04/24 04:34 Chloride 110 mmol/L (101-111) 07/04/24 04:34 Carbon Dioxide 23 mmol/L (21-32) 07/04/24 04:34 Anion Gap 6.0 (6-13) 07/04/24 04:34 BUN 17 mg/dL (6-20) 07/04/24 04:34 Creatinine 0.7 mg/dL (0.6-1.3) 07/04/24 04:34 Estimated GFR (MDRD) 126 (>89) 07/04/24 04:34 Glucose 160 mg/dL (74-104) H 07/04/24 04:34 Calcium 8.7 mg/dL (8.5-10.3) 07/04/24 04:34 Phosphorus 2.8 mg/dL (2.5-5.0) 07/04/24 04:34 Magnesium 2.1 mg/dL (1.7-2.3) 07/04/24 04:34 Total Bilirubin 0.4 mg/dL (0.2-1.0) 07/02/24 04:32 AST 50 IU/L (10-42) H 07/02/24 04:32 ALT 35 IU/L (10-60) 07/02/24 04:32 Alkaline Phosphatase 88 IU/L (42-121) 07/02/24 04:32 Total Creatine Kinase 1996 IU/L (30-223) H* 07/02/24 04:32 Total Protein 6.2 g/dL (6.4-8.9) L 07/02/24 04:32 Albumin 3.8 g/dL (3.2-5.5) 07/02/24 04:32 Globulin 2.4 g/dL (2.1-4.2) 07/02/24 04:32 Albumin/Globulin Ratio 1.6 (1.0-2.2) 07/02/24 04:32 Lipase 29 U/L (11-82) 07/01/24 17:00 Procalcitonin Immunoas 0.28 ng/mL (<0.5) 07/03/24 12:00 TSH 0.48 uIU/mL (0.34-5.60) 07/01/24 17:00 Urine Color YELLOW 07/01/24 17:11 Urine Clarity CLEAR (CLEAR) 07/01/24 17:11 Urine pH 6.0 PH (5.0-7.5) 07/01/24 17:11 Ur Specific [place] 1.020 (1.002-1.030) 07/01/24 17:11 Urine Protein NEGATIVE mg/dL (NEGATIVE) 07/01/24 17:11 Urine Glucose (UA) NEGATIVE mg/dL (NEGATIVE) 07/01/24 17:11 Urine Ketones NEGATIVE mg/dL (NEGATIVE) 07/01/24 17:11 Urine Occult Blood NEGATIVE (NEGATIVE) 07/01/24 17:11 Urine Nitrite NEGATIVE (NEGATIVE) 07/01/24 17:11 Urine Bilirubin NEGATIVE (NEGATIVE) 07/01/24 17:11 Urine Urobilinogen 0.2 (NORMAL) E.U./dL (NORMAL) 07/01/24 17:11 Ur Leukocyte Esterase NEGATIVE (NEGATIVE) 07/01/24 17:11 Ur Microscopic Review NOT INDICATED 07/01/24 17:11 Urine Culture Comments NOT INDICATED 07/01/24 17:11 Nasal Adenovirus (PCR) NOT DETECTED 07/01/24 17:06 Nasal B. parapertussis DNA (PCR) NOT DETECTED 07/01/24 17:06 Nasal Coronavir 229E PCR NOT DETECTED 07/01/24 17:06 Nasal Coronavir HKU1 PCR NOT DETECTED 07/01/24 17:06 Nasal Coronavir NL63 PCR NOT DETECTED 07/01/24 17:06 Nasal Coronavir OC43 PCR NOT DETECTED 07/01/24 17:06 Nasal Enterovir/Rhinovir PCR NOT DETECTED 07/01/24 17:06 Nasal Influenza B PCR NOT DETECTED 07/01/24 17:06 Nasal Influenza A PCR NOT DETECTED 07/01/24 17:06 Nasal Parainfluen 1 PCR NOT DETECTED 07/01/24 17:06 Nasal Parainfluen 2 PCR NOT DETECTED 07/01/24 17:06 Nasal Parainfluen 3 PCR NOT DETECTED 07/01/24 17:06 Nasal Parainfluen 4 PCR NOT DETECTED 07/01/24 17:06 Nasal RSV (PCR) NOT DETECTED 07/01/24 17:06 Nasal Screen MRSA (PCR) NEGATIVE (NEGATIVE) 07/01/24 22:30 Nasal B.pertussis DNA PCR NOT DETECTED 07/01/24 17:06 Nasal C.pneumoniae (PCR) NOT DETECTED 07/01/24 17:06 [place] Human Metapneumo PCR NOT DETECTED 07/01/24 17:06 Nasal M.pneumoniae (PCR) NOT DETECTED 07/01/24 17:06 Nasal SARS-CoV-2 (PCR) NOT DETECTED 07/01/24 17:06 Salicylates < 1.5 mg/dL 07/01/24 17:00 Urine Opiates Screen NEGATIVE (NEGATIVE) 07/01/24 17:11 Ur Buprenorphine Scrn NEGATIVE (NEGATIVE) 07/01/24 17:11 Ur Oxycodone Screen NEGATIVE (NEGATIVE) 07/01/24 17:11 Urine Methadone Screen NEGATIVE (NEGATIVE) 07/01/24 17:11 Acetaminophen < 0.1 ug/mL 07/01/24 17:00 Ur Barbiturates Screen NEGATIVE (NEGATIVE) 07/01/24 17:11 Ur Tricyclics Screen POSITIVE (NEGATIVE) H 07/01/24 17:11 Ur Phencyclidine Scrn NEGATIVE (NEGATIVE) 07/01/24 17:11 Ur Amphetamine Screen NEGATIVE (NEGATIVE) 07/01/24 17:11 U Methamphetamines Scrn NEGATIVE (NEGATIVE) 07/01/24 17:11 U Benzodiazepines Scrn NEGATIVE (NEGATIVE) 07/01/24 17:11 Urine Cocaine Screen NEGATIVE (NEGATIVE) 07/01/24 17:11 U Cannabinoids Screen NEGATIVE (NEGATIVE) 07/01/24 17:11 Ur Drug Screen Comment CUTOFF CONC BELOW: 07/01/24 17:11 Ethyl Alcohol < 10.0 mg/dL 07/01/24 17:00 Sepsis Event Note (H) - Evaluation Current Stage of Sepsis: Ruled out ABX Reporting Has patient been on IV antibiotics over the past 48 hours?: Yes Current Medications - Current Medications Current Medications: Current Medications Generic Name Dose Route Start Last Admin Trade Name Freq PRN Reason Stop Dose Admin Acetaminophen 160 mg 07/02/24 10:27 07/02/24 12:23 Acetaminophen 160 Mg/5 Ml Susp Udc PO 160 mg Q6HR PRN Administration Pain or Fever > 38C (100.4F) Piperacillin Sod/Tazobactam 100 mls @ 25 mls/hr 07/02/24 12:00 07/04/24 12:00 Sod 3.375 gm/ Sodium Chloride IV 25 mls/hr Q8H CIRILO Administration Ketorolac Tromethamine 30 mg 07/03/24 13:01 07/04/24 10:30 Ketorolac 30 Mg/Ml Vial IVP 07/08/24 13:00 30 mg Q6HR PRN Administration Severe Pain (Level 7-10) Lorazepam 1 mg 07/02/24 11:57 07/03/24 23:17 Lorazepam 2 Mg/Ml Vial IVP 1 mg Q1H PRN Administration Anxiety Patient Own Medication 1 each 07/04/24 09:00 07/04/24 09:07 Patient Own Med PO Not Given DAILY CIRILO Sodium Chloride 10 ml 07/02/24 01:00 07/04/24 08:40 Sodium Chloride Flush 0.9% 10 Ml Syringe IVP 10 ml 0100,0900,1700 CIRILO Administration Sodium Chloride 10 ml 07/01/24 19:28 07/02/24 06:29 Sodium Chloride Flush 0.9% 10 Ml Syringe IVP 10 ml PRN PRN Administration NEEDED PER PROVIDER ORDERS
[2024-07-04] MEDS: methocarbamoL 500 MG TABLET PO PRN (18:49)
[2024-07-04] MEDS: PREGABALIN 25 MG CAPSULE PO SCH (20:05)
[2024-07-04] MEDS: PREGABALIN 100 MG CAPSULE PO SCH (20:06)
[2024-07-05 04:41] LABS: HGB - HEMOGLOBIN 10.9 g/dL (14.0-18.0); MEAN CORPUSCULAR HEMOGLOBIN 30.5 pg (27.0-31.0); MEAN CORPUSCULAR VOLUME 92.4 fL (80.0-94.0); MEAN PLATELET VOLUME 9.1 fL (7.4-11.4); RED BLOOD COUNT 3.57 10^6/uL (4.70-6.10); RED CELL DISTRIBUTION WIDTH 13.4 % (12.0-15.0); WHITE BLOOD COUNT 8.8 x10^3/uL (4.8-10.8)
[2024-07-05 04:43] LABS: CALCIUM, IONIZED 1.07 mmol/L (1.15-1.33); VBG PH 7.466 (7.31-7.41)
[2024-07-05 04:57] LABS: CREATININE 0.9 mg/dL (0.6-1.3); MAGNESIUM 1.6 mg/dL (1.7-2.3); PHOSPHORUS 2.4 mg/dL (2.5-5.0); POTASSIUM 3.2 mmol/L (3.5-4.5)
[2024-07-05] MEDS: MAGNESIUM OXIDE 400 MG TABLET PO SCH (08:39)
[2024-07-05] MEDS: guaiFENesin 600 MG TABLET PO SCH (08:39)
[2024-07-05] MEDS: NEUTRA-PHOS 250 MG TABLET PO SCH (08:39)
[2024-07-05] MEDS: BENZOCAINE/MENTHOL LOZENGE MM PRN (10:15)
[2024-07-05] MEDS: CALCIUM CARBONATE CHEW 500 MG TABLET PO SCH (11:34)
--- NOTE | 2024-07-05 13:56 | PROVIDER PROGRESS NOTE ---
Assessment/Plan - Problem List (1) Drug overdose Qualifiers: Encounter type: initial encounter Injury intent: intentional self-harm Qualified Code(s): T50.902A - Poisoning by unspecified drugs, medicaments and biological substances, intentional self-harm, initial encounter Assessment/Plan: Intentional OD due to suicidal ideation on methocarbamol, clonazepam, and pregablin Reports current suicidal ideation. Was on Prozac before being switched to pristiq in june. Follows a primary care psychiatrist Reports fatigue in spite of CPAP use, likely medication effect. 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 (3) Hypokalemia Assessment/Plan: replete, recheck in AM (4) Rhabdomyolysis Qualifiers: Rhabdomyolysis type: non-traumatic Qualified Code(s): M62.82 - Rhabdomyol ysis Assessment/Plan: IVF bolus, Continue to trend Likely secondary to intentional overdose (5) Chronic pain Qualifiers: Chronic pain type: chronic pain syndrome Qualified Code(s): G89.4 - Chronic pain syndrome Assessment/Plan: Methocarbamol and pregablin resumed last night. Still reporting significant pain. Discussed treatment options at discharge including pain management clinics and possible ketamine infusion treatment (6) Respiratory failure Qualifiers: Chronicity: acute Respiratory failure complication: hypoxia Qualified Code(s): J96.01 - Acute respiratory failure with hypoxia Assessment/Plan: Resolved Intubated on admit, extubated 07/03. On room air this AM. Concern raised for aspiration pneumonia and mild pulmonary edema while intubated so was started on zosyn. Respiratory cultures positive group C Strep Leukocytosis resolved, will switch to PO Amoxicillin for a total of 5 days antibiotics - Current Meds Current Meds: Current Medications Generic Name Dose Route Start Last Admin Trade Name Freq PRN Reason Stop Dose Admin Acetaminophen 160 mg 07/02/24 10:27 07/02/24 12:23 Acetaminophen 160 Mg/5 Ml Susp Udc PO 160 mg Q6HR PRN Administration Pain or Fever > 38C (100.4F) Calcium Carbonate/Glycine 1,250 mg 07/05/24 12:00 07/05/24 11:34 Calcium Carbonate Chew 500 Mg Tablet PO 07/05/24 16:01 1,250 mg Q4H CIRILO Administration Protocol Guaifenesin 600 mg 07/05/24 09:00 07/05/24 08:39 Guaifenesin 600 Mg Tablet PO 600 mg BID CIRILO Administration Piperacillin Sod/Tazobactam 100 mls @ 25 mls/hr 07/02/24 12:00 07/05/24 11:34 Sod 3.375 gm/ Sodium Chloride IV 25 mls/hr Q8H CIRILO Administration Ketorolac Tromethamine 30 mg 07/03/24 13:01 07/05/24 11:37 Ketorolac 30 Mg/Ml Vial IVP 07/08/24 13:00 30 mg Q6HR PRN Administration Severe Pain (Level 7-10) Lorazepam 1 mg 07/02/24 11:57 07/03/24 23:17 Lorazepam 2 Mg/Ml Vial IVP 1 mg Q1H PRN Administration Anxiety Magnesium Oxide 400 mg 07/05/24 08:00 07/05/24 13:18 Magnesium Oxide 400 Mg Tablet PO 07/05/24 14:01 400 mg Q6H CIRILO Administration Protocol Methocarbamol 750 mg 07/04/24 16:34 07/05/24 13:15 Methocarbamol 500 Mg Tablet PO 750 mg TID PRN Administration spasm Pregabalin 100 mg 07/04/24 21:00 07/05/24 08:39 Pregabalin 100 Mg Capsule PO 100 mg BID CIRILO Administration Pregabalin 50 mg 07/04/24 21:00 07/05/24 08:38 Pregabalin 25 Mg Capsule PO 50 mg BID CIRILO Administration Sodium Chloride 10 ml 07/02/24 01:00 07/05/24 08:39 Sodium Chloride Flush 0.9% 10 Ml Syringe IVP 10 ml 0100,0900,1700 CIRILO Administration Sodium Chloride 10 ml 07/01/24 19:28 07/02/24 06:29 Sodium Chloride Flush 0.9% 10 Ml Syringe IVP 10 ml PRN PRN Administration NEEDED PER PROVIDER ORDERS Throat Lozenges 1 lozenge 07/05/24 07:59 07/05/24 10:15 Benzocaine/Menthol Lozenge MM 1 lozenge Q2HR PRN Administration Mouth Sore Pain - Lab Result [place] Diagrams: 07/05/24 04:22 07/05/24 04:22 - Other Other Results/Comments: Intentional overdose - Additional Planning Condition/Complexity: Improved Plan Discussed with:: Patient, Family Time Spent: 31-60 minutes Subjective - Subjective Patient Reports: Cough (Reports current suicidal ideation) Nursing Reports: Cough Objective Vital Signs: Vital Signs - 24 hr 07/04/24 07/04/24 07/04/24 14:00 15:00 16:00 Temperature 36.8 C 37.0 C 37.2 C Heart Rate [ 73 86 94 Monitoring electrodes] Respiratory 25 H 22 26 H Rate Blood Pressure 175/85 H 138/76 H 118/56 L [Right Brachial artery] O2 Saturation 92 94 94 07/04/24 07/04/24 07/04/24 17:00 18:00 18:46 Temperature Heart Rate [ 93 96 Monitoring electrodes] Respiratory 26 H 35 H Rate Blood Pressure 134/73 H 129/82 H [Right Brachial artery] O2 Saturation 92 92 93 07/04/24 07/04/24 07/04/24 19:00 20:00 21:00 Temperature 36.7 C Heart Rate [ 93 104 H 71 Monitoring electrodes] Respiratory 15 26 H 15 Rate Blood Pressure 114/48 L 100/63 122/61 [Right Brachial artery] O2 Saturation 93 92 92 07/04/24 07/04/24 07/05/24 22:00 23:00 00:00 Temperature Heart Rate [ 99 76 74 Monitoring electrodes] Respiratory 21 20 19 Rate Blood Pressure 100/72 120/75 112/77 [Right Brachial artery] O2 Saturation 93 92 93 07/05/24 07/05/24 07/05/24 01:00 02:00 03:00 Temperature Heart Rate [ 73 92 70 Monitoring electrodes] Respiratory 20 23 22 Rate Blood Pressure 110/55 L 121/84 H 123/61 [Right Brachial artery] O2 Saturation 92 94 93 07/05/24 07/05/24 07/05/24 04:00 05:00 06:00 Temperature 37.0 C Heart Rate [ 94 74 74 Monitoring electrodes] Respiratory 21 22 19 Rate Blood Pressure 129/61 127/67 133/67 H [Right Brachial artery] O2 Saturation 95 91 L 94 07/05/24 07/05/24 07/05/24 07:00 07:59 09:00 Temperature 37.1 C Heart Rate [ 70 75 90 Monitoring electrodes] Respiratory 18 20 24 Rate Blood Pressure 117/56 L 117/7 L 127/73 [Right Brachial artery] O2 Saturation 95 91 L 92 07/05/24 07/05/24 07/05/24 10:00 11:00 12:00 Temperature 3.4 C L Heart Rate [ 85 91 93 Monitoring electrodes] Respiratory 22 22 20 Rate Blood Pressure 139/77 H 118/82 H 125/61 [Right Brachial artery] O2 Saturation 92 92 97 07/05/24 13:00 Temperature Heart Rate [ 95 Monitoring electrodes] Respiratory 24 Rate Blood Pressure 114/71 [Right Brachial artery] O2 Saturation 95 Oxygen O2 Source Patient supplied BIPAP I&O (Last 24 Hrs): Intake and Output Totals x24h 07/03/24 07/04/24 07/05/24 23:59 23:59 23:59 Intake Total 4321.126 4939.620 1760 Output Total 3782 1704 600 Balance 430.462 1774.620 1160 General: Alert, Oriented x3, Cooperative, No acute distress HEENT: Atraumatic Neck: Supple, No JVD Neuro: Alert, Oriented Times 3 Cardiovascular: Regular rate, Normal S1, Normal S2 Respiratory: Chest non-tender, No respiratory distress, Breath sounds nml Abdomen: Normal bowel sounds Extremities: No clubbing, No cyanosis, No edema Skin: No rashes - Results Results: Laboratory Results WBC 8.8 x10^3/uL (4.8-10.8) 07/05/24 04:22 RBC 3.57 10^6/uL (4.70-6.10) L 07/05/24 04:22 Hgb 10.9 g/dL (14.0-18.0) L 07/05/24 04:22 Hct 33.0 % (42.0-52.0) L 07/05/24 04:22 MCV 92.4 fL (80.0-94.0) 07/05/24 04:22 MCH 30.5 pg (27.0-31.0) 07/05/24 04:22 MCHC 33.0 g/dL (32.0-36.0) 07/05/24 04:22 RDW 13.4 % (12.0-15.0) 07/05/24 04:22 Plt Count 126 10^3/uL (130-450) L 07/05/24 04:22 MPV 9.1 fL (7.4-11.4) 07/05/24 04:22 Neut # (Auto) 6.3 10^3/uL (1.5-6.6) 07/03/24 07:17 Lymph # (Auto) 0.8 10^3/uL (1.5-3.5) L 07/03/24 07:17 [place] # (Auto) 0.4 10^3/uL (0.0-1.0) 07/03/24 07:17 Eos # (Auto) 0.1 10^3/uL (0.0-0.7) 07/03/24 07:17 Baso # (Auto) 0.0 10^3/uL (0.0-0.1) 07/03/24 07:17 Absolute Nucleated RBC 0.00 x10^3/uL 07/03/24 07:17 Nucleated RBC % 0.0 /100WBC 07/03/24 07:17 PT 13.9 secs (9.9-12.6) H 07/01/24 17:00 INR 1.3 (0.8-1.2) H 07/01/24 17:00 Bld Gas Analysis Time 0746 07/02/24 07:35 Sample Site LEFT RADIAL 07/02/24 07:35 ABG pH 7.45 (7.35-7.45) 07/02/24 07:35 ABG pCO2 37 mmHg (34-45) 07/02/24 07:35 ABG pO2 73 mmHg (80-100) L 07/02/24 07:35 ABG HCO3 25.5 mmol/L (22.0-26.0) 07/02/24 07:35 ABG Total CO2 26.7 MMOL/L (21.0-29.0) 07/02/24 07:35 ABG O2 Saturation 95 % (94-98) 07/02/24 07:35 ABG Base Excess 1.8 mmol/L (-2.0-3.0) 07/02/24 07:35 Mariano Test POSITIVE 07/02/24 07:35 VBG pH 7.466 (7.31-7.41) H 07/05/24 04:22 Ionized Calcium 1.07 mmol/L (1.15-1.33) L 07/05/24 04:22 Respiration Rate 12 b/min 07/02/24 07:35 O2 Delivery Device VENTILATOR 07/02/24 07:35 Vent Mode ASSIST/CONTROL 07/02/24 07:35 FiO2 40.00 07/02/24 07:35 Tidal Volume 600 mL 07/02/24 07:35 PEEP 5 cmH2O 07/02/24 07:35 Sodium 141 mmol/L (135-145) 07/05/24 04:22 Potassium 3.2 mmol/L (3.5-4.5) L 07/05/24 04:22 Chloride 108 mmol/L (101-111) 07/05/24 04:22 Carbon Dioxide 25 mmol/L (21-32) 07/05/24 04:22 Anion Gap 8.0 (6-13) 07/05/24 04:22 BUN 19 mg/dL (6-20) 07/05/24 04:22 Creatinine 0.9 mg/dL (0.6-1.3) 07/05/24 04:22 Estimated GFR (MDRD) 94 (>89) 07/05/24 04:22 Glucose 98 mg/dL (74-104) 07/05/24 04:22 POC Whole Bld Glucose 150 mg/dL (70 - 100) H 07/05/24 09:07 Calcium 8.0 mg/dL (8.5-10.3) L 07/05/24 04:22 Phosphorus 2.4 mg/dL (2.5-5.0) L 07/05/24 04:22 Magnesium 1.6 mg/dL (1.7-2.3) L 07/05/24 04:22 Total Bilirubin 0.4 mg/dL (0.2-1.0) 07/02/24 04:32 AST 50 IU/L (10-42) H 07/02/24 04:32 ALT 35 IU/L (10-60) 07/02/24 04:32 Alkaline Phosphatase 88 IU/L (42-121) 07/02/24 04:32 Total Creatine Kinase 1996 IU/L (30-223) H* 07/02/24 04:32 Total Protein 6.2 g/dL (6.4-8.9) L 07/02/24 04:32 Albumin 3.8 g/dL (3.2-5.5) 07/02/24 04:32 Globulin 2.4 g/dL (2.1-4.2) 07/02/24 04:32 Albumin/Globulin Ratio 1.6 (1.0-2.2) 07/02/24 04:32 Lipase 29 U/L (11-82) 07/01/24 17:00 Procalcitonin Immunoas 0.28 ng/mL (<0.5) 07/03/24 12:00 TSH 0.48 uIU/mL (0.34-5.60) 07/01/24 17:00 Urine Color YELLOW 07/01/24 17:11 Urine Clarity CLEAR (CLEAR) 07/01/24 17:11 Urine pH 6.0 PH (5.0-7.5) 07/01/24 17:11 Ur Specific [place] 1.020 (1.002-1.030) 07/01/24 17:11 Urine Protein NEGATIVE mg/dL (NEGATIVE) 07/01/24 17:11 Urine Glucose (UA) NEGATIVE mg/dL (NEGATIVE) 07/01/24 17:11 Urine Ketones NEGATIVE mg/dL (NEGATIVE) 07/01/24 17:11 Urine Occult Blood NEGATIVE (NEGATIVE) 07/01/24 17:11 Urine Nitrite NEGATIVE (NEGATIVE) 07/01/24 17:11 Urine Bilirubin NEGATIVE (NEGATIVE) 07/01/24 17:11 Urine Urobilinogen 0.2 (NORMAL) E.U./dL (NORMAL) 07/01/24 17:11 Ur Leukocyte Esterase NEGATIVE (NEGATIVE) 07/01/24 17:11 Ur Microscopic Review NOT INDICATED 07/01/24 17:11 Urine Culture Comments NOT INDICATED 07/01/24 17:11 Nasal Adenovirus (PCR) NOT DETECTED 07/01/24 17:06 Nasal B. parapertussis DNA (PCR) NOT DETECTED 07/01/24 17:06 Nasal Coronavir 229E PCR NOT DETECTED 07/01/24 17:06 Nasal Coronavir HKU1 PCR NOT DETECTED 07/01/24 17:06 Nasal Coronavir NL63 PCR NOT DETECTED 07/01/24 17:06 Nasal Coronavir OC43 PCR NOT DETECTED 07/01/24 17:06 Nasal Enterovir/Rhinovir PCR NOT DETECTED 07/01/24 17:06 Nasal Influenza B PCR NOT DETECTED 07/01/24 17:06 Nasal Influenza A PCR NOT DETECTED 07/01/24 17:06 Nasal Parainfluen 1 PCR NOT DETECTED 07/01/24 17:06 Nasal Parainfluen 2 PCR NOT DETECTED 07/01/24 17:06 Nasal Parainfluen 3 PCR NOT DETECTED 07/01/24 17:06 Nasal Parainfluen 4 PCR NOT DETECTED 07/01/24 17:06 Nasal RSV (PCR) NOT DETECTED 07/01/24 17:06 Nasal Screen MRSA (PCR) NEGATIVE (NEGATIVE) 07/01/24 22:30 Nasal B.pertussis DNA PCR NOT DETECTED 07/01/24 17:06 Nasal C.pneumoniae (PCR) NOT DETECTED 07/01/24 17:06 [place] Human Metapneumo PCR NOT DETECTED 07/01/24 17:06 Nasal M.pneumoniae (PCR) NOT DETECTED 07/01/24 17:06 Nasal SARS-CoV-2 (PCR) NOT DETECTED 07/01/24 17:06 Salicylates < 1.5 mg/dL 07/01/24 17:00 Urine Opiates Screen NEGATIVE (NEGATIVE) 07/01/24 17:11 Ur Buprenorphine Scrn NEGATIVE (NEGATIVE) 07/01/24 17:11 Ur Oxycodone Screen NEGATIVE (NEGATIVE) 07/01/24 17:11 Urine Methadone Screen NEGATIVE (NEGATIVE) 07/01/24 17:11 Acetaminophen < 0.1 ug/mL 07/01/24 17:00 Ur Barbiturates Screen NEGATIVE (NEGATIVE) 07/01/24 17:11 Ur Tricyclics Screen POSITIVE (NEGATIVE) H 07/01/24 17:11 Ur Phencyclidine Scrn NEGATIVE (NEGATIVE) 07/01/24 17:11 Ur Amphetamine Screen NEGATIVE (NEGATIVE) 07/01/24 17:11 U Methamphetamines Scrn NEGATIVE (NEGATIVE) 07/01/24 17:11 U Benzodiazepines Scrn NEGATIVE (NEGATIVE) 07/01/24 17:11 Urine Cocaine Screen NEGATIVE (NEGATIVE) 07/01/24 17:11 U Cannabinoids Screen NEGATIVE (NEGATIVE) 07/01/24 17:11 Ur Drug Screen Comment CUTOFF CONC BELOW: 07/01/24 17:11 Ethyl Alcohol < 10.0 mg/dL 07/01/24 17:00 Sepsis Event Note (H) - Evaluation Current Stage of Sepsis: Ruled out ABX Reporting Has patient been on IV antibiotics over the past 48 hours?: Yes
[2024-07-05] MEDS: SODIUM CHLORIDE 0.9% 1,000 ML IV ONE (15:35)
[2024-07-05] MEDS: AMOXICILLIN 250 MG CAPSULE PO SCH (21:26)
[2024-07-05] MEDS ORDERED: CLINDAMYCIN 150 MG CAPSULE PO SCH (22:00)
[2024-07-06 05:31] LABS: HCT - HEMATOCRIT 34.5 % (42.0-52.0); HGB - HEMOGLOBIN 11.3 g/dL (14.0-18.0); MEAN CORPUSCULAR HEMOGLOBIN 30.4 pg (27.0-31.0); MEAN CORPUSCULAR HGB CONC 32.8 g/dL (32.0-36.0); MEAN CORPUSCULAR VOLUME 92.7 fL (80.0-94.0); MEAN PLATELET VOLUME 8.7 fL (7.4-11.4); RED BLOOD COUNT 3.72 10^6/uL (4.70-6.10); RED CELL DISTRIBUTION WIDTH 13.4 % (12.0-15.0); WHITE BLOOD COUNT 6.8 x10^3/uL (4.8-10.8)
[2024-07-06 05:55] LABS: CALCIUM 7.8 mg/dL (8.5-10.3); CREATININE 0.7 mg/dL (0.6-1.3); POTASSIUM 3.4 mmol/L (3.5-4.5)
[2024-07-06 08:24] LABS: MAGNESIUM 1.7 mg/dL (1.7-2.3)
[2024-07-06] MEDS: POTASSIUM CHLORIDE 20 MEQ TABLET PO ONE (08:28)
[2024-07-06] MEDS: clonazePAM 0.5 MG TABLET PO PRN (08:35)
[2024-07-06] MEDS: LOPERAMIDE 2 MG CAPSULE PO PRN (10:27)
--- NOTE | 2024-07-06 11:37 | Discharge Plan ---
Discharge Plan Problem Reviewed?: Yes Disposition: 02 Transfer Acute Care Hosp Condition: Good Diet: Regular Activity Restrictions: Activity as Tolerated Shower Restrictions: No Driving Restrictions: No Health Concerns: You have a chronic pain history due to spinal surgery and peripheral neuropathy that has led to severe depression and anxiety. You take multiple medications for all of that and have had a recent change in your antidepresssant medication. The changes from prozac to prestiq made the depression worse. You began to feel lack of hope and this made you think of killing yourself. This culminated in an intentional overdose on your part with methocarbamol, lyrica, and clonazepam. You had let your know of your intentions with a phone call after you took the overdose. An ambulance was called and you were brought to the hospital. Because you were very sedated, we protected her airway and you are breathing with an intubation. After 2 days you were able to be extubated and have been stable since that time. You have had mild deficiencies in potassium, magnesium and phosphorus that we have supplemented. You are ambulatory in your room. Feeding yourself. You still have severe despondency and depression. 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 You will be transferred to [facility] for inpatient psychiatric care. Care Goals: To achieve stability with regards to your feelings of despondency and depression and anxiety. Assessment: Patient is alert, oriented to person, place, time and situation. He states he does want to get better No Smoking: If you smoke, Please STOP! Call for help.
[2024-07-06 12:02] VITALS: BP 138/84; O2SAT 92
--- NOTE | 2024-07-06 12:26 | DISCHARGE SUMMARY ---
Discharge Summary Admit Date: 07/01/24 Discharge Date: 07/06/24 Discharging Provider: Rekha Sin MD Primary Care Provider: Ewa ALFORD Code Status: Attempt Resuscitation Condition at Discharge: Good Discharge Disposition: 02 Transfer Acute Care Hosp - DIAGNOSES Discharge Diagnoses with Status of Each Condition: 1. Acute hypercapnic and hypoxic respiratory failure due to #2, resolved 2. Intentional drug overdose 3. Major depressive disorder 4. Rhabdomyolysis 5. Thrombocytopenia 6. Chronic pain syndrome due to peripheral neuropathy and lumbar fusion history 7. Mild aspiration pneumonitis 8. Acute ventilator status, resolved 10. Suicidal ideation 11. Hypokalemia 12. Hypomagnesemia 13. Hypophosphatemia - HPI History of Present Illness: 38 y old male with PMH back pain BIBA due to AMS and drug overdose. Pt is currently intubated and on ventilator so most of history is by ER physician and ER record Apparently pt was found unconsious in his bed with empty bottles of methocarbamol, clonazepam and lyrica. Pt was intubated by EMS at the scene and brought to the ER Labs showed thromrombocytopenia and CPK > 2800 CT head showed no acute intracranial abnormalities CXR showed no acute infiltrate In ER pt was given NS 1L IV bolus Pt is admitted due to acute respiratory failure, Drug overdose, acute rhabdomyolysis - Past Medical History Cardiovascular: reports: None Respiratory: reports: None Neuro: reports: None Endocrine/Autoimmune: reports: None GI: reports: None : reports: None HEENT: reports: None Psych: reports: Depression Musculoskeletal: reports: Chronic back pain Derm: reports: None MRSA Hx?: No - Past Surgical History Ortho: reports: Spine surgery - ALLERGIES Allergies/Adverse Reactions: Allergies Allergy/AdvReac Type Severity Reaction Status Date / Time codeine AdvReac Unknown Verified 07/01/24 17:25 - MEDICATIONS Home Medications: Ambulatory Orders Medication Instructions Recorded Confirmed Pregabalin 150 mg PO BID 12/22/23 07/01/24 methocarbamoL [Methocarbamol] 750 mg PO BID 12/22/23 07/01/24 Desvenlafaxine Succinate [Pristiq 50 mg PO DAILY 07/01/24 07/01/24 ER] QUEtiapine [SEROquel] 200 mg PO HS 07/01/24 07/02/24 clonazePAM [Klonopin] 0.5 mg PO BID 07/01/24 07/01/24 modafiniL [Modafinil] 200 mg PO DAILY 07/01/24 07/01/24 Fexofenadine [Margarita] 180 mg PO DAILY 07/02/24 07/02/24 Naproxen 500 mg PO BID PRN 07/02/24 07/02/24 - LABS Result Diagrams: 07/06/24 05:12 07/06/24 05:12 - SEPSIS Current Stage of Sepsis: Ruled out
== END 2024-07-06 12:45 | disposition short-term general hospital (02) | DRG 208 ==
LOC: EDUNIT# → ED 16:47 → ICU 19:28 → MS2 07-05 17:10
PROVIDERS: ADMIT Internal Medicine; ATTEND Specialist
PROC: 5A1945Z Respiratory Ventilation, 24-96 Consecutive Hours (ICD-10-PCS; principal; 2024-07-01)
DX: J96.01 Acute respiratory failure with hypoxia (principal); J69.0 Pneumonitis due to inhalation of food and vomit; M62.82 Rhabdomyolysis; R45.851 Suicidal ideations; F32.2 Major depressive disorder, single episode, severe without psychotic features; J96.02 Acute respiratory failure with hypercapnia; D69.6 Thrombocytopenia, unspecified; G89.4 Chronic pain syndrome; G62.9 Polyneuropathy, unspecified; E87.6 Hypokalemia; E83.42 Hypomagnesemia; E83.39 Other disorders of phosphorus metabolism; T42.8X2A Poisoning by antiparkinsonism drugs and other central muscle-tone depressants, intentional self-harm, initial encounter; T42.4X2A Poisoning by benzodiazepines, intentional self-harm, initial encounter; T42.6X2A Poisoning by other antiepileptic and sedative-hypnotic drugs, intentional self-harm, initial encounter; Y92.003 Bedroom of unspecified non-institutional (private) residence as the place of occurrence of the external cause; F17.200 Nicotine dependence, unspecified, uncomplicated; Z11.52 Encounter for screening for COVID-19; Z79.899 Other long term (current) drug therapy; Z98.1 Arthrodesis status
CPT/HCPCS: 36415; 36600; 70450; 71045; 80048; 80053; 80143; 80179; 80306; 81003; 82077; 82330; 82550; 82803; 83690; 83735; 84100; 84132; 84145; 84295; 84443; 85025; 85027; 85610; 87070; 87077; 87150; 87205; 87633; 93005; 94002; 94003; 96374; 99291; A9270; J0131; J1200; J2060; 81001; 87086